=== PATIENT | female | born 1965 | race African-American/Black ===

== ENCOUNTER 2017-04-29 01:27 | Inpatient (IN) | payer OTHER ==
[~2017-04-29] VITALS: Ht 165.1 cm; Wt 155.7 kg
[~2017-04-29 01:27] MED LIST: ASPI-1159 PO; ATOR10TA69 PO; CARV3.1242 PO; CLOP75TA33 PO; GLIP10TA10 PO; LIP40 PO; LISI10TA5 PO; METF500T4 PO
[2017-04-29] MEDS ORDERED: CLON0.1T PO (01:56)
[2017-04-29] MEDS ORDERED: LATA2.5D2 OP (01:56)
[2017-04-29] MEDS ORDERED: FERR325T6 PO (01:56)
[2017-04-29] MEDS ORDERED: FURO40TA5 PO (01:56)
[2017-04-29] MEDS ORDERED: INSNOV SUBCUT (01:56)
[2017-04-29] MEDS ORDERED: LEVO75TA7 PO (01:56)
[2017-04-29] MEDS ORDERED: ERGO2000 PO (01:56)
[2017-04-29] MEDS ORDERED: FOLI-43 PO (01:56)
[2017-04-29] MEDS ORDERED: INSHUMSS SUBCUT (01:56)
[2017-04-29] MEDS ORDERED: SODIUM CHLORIDE 0.9% 1,000 ML IV ONE (06:33)
[2017-04-29] MEDS ORDERED: ONDANSETRON HCL 4MG/2ML VIAL IV STA ×2 (06:33→08:57)
[2017-04-29 07:04] LABS: BASOPHILS % 0.9 % (0.0-2.0); EOSINOPHILS % 5.2 % (0.0-5.0); HEMATOCRIT. 33.6 % (36.0-48.0); HEMOGLOBIN. 10.6 g/dL (12.0-16.0); LYMPHOCYTES % 19.8 % (20.0-50.0); MEAN CORPUSCULAR HEMOGLOBIN 25.9 pg (28.0-32.0); MEAN CORPUSCULAR VOLUME 81.9 fL (81.0-99.0); MEAN PLATELET VOLUME 7.6 fl (7.4-10.4); MONOCYTES % 8.1 % (2.0-8.0); PLATELET 363 x1000/uL (130-400); RED CELL DISTRIBUTION WIDTH 13.5 % (11.6-14.6)
[2017-04-29 07:07] LABS: CHLORIDE 113 mEq/L (98-107)
[2017-04-29 07:08] LABS: PROTHROMBIN TIME 10.5 sec (9.4-11.6)
[2017-04-29 07:15] LABS: CLARITY URINE CLEAR (CLEAR); COLOR URINE YELLOW (YELLOW); KETONES URINE TRACE (NEGATIVE); LEUKOCYTE ESTERASE URINE NEGATIVE (NEGATIVE); NITRITE URINE NEGATIVE (NEGATIVE); OCCULT BLOOD URINE 2+ (NEGATIVE); PH URINE 6.5 (4.5-8.0); PROTEIN URINE 4+ (NEGATIVE); SPECIFIC GRAVITY URINE 1.024 (1.005-1.030); UROBILINOGEN URINE 0.2 E.U./dL (0.2-1.0)
[2017-04-29 07:19] LABS: CARBON DIOXIDE 23 mEq/L (21-32)
[2017-04-29] MEDS ORDERED: SODIUM BICARBONATE 8.4% 1 MEQ/ML 50ML SYR IV ONE (08:15)
[2017-04-29] MEDS ORDERED: SODIUM POLYSTYRENE SULFONATE 15 G/60 ML BOT PO ONE (08:15)
[2017-04-29] MEDS ORDERED: DEXTROSE 50% WATER 50ML SYRINGE IV ONE (08:15)
[2017-04-29] MEDS ORDERED: INSULIN REGULAR (HUMULIN R) 300UNITS/3ML IV ONE (08:15)
[2017-04-29] MEDS ORDERED: ONDANSETRON HCL 4MG/2ML VIAL IV PRN (09:15)
[2017-04-29] MEDS ORDERED: MORPHINE SULFATE 2 MG/ML CPJ (NOT FOR IM USE) IV PRN (09:15)
[2017-04-29] MEDS ORDERED: IPRATROPIUM/ALBUTEROL 0.5-3(2.5)MG/3ML NEB INH PRN (09:15)
[2017-04-29] MEDS ORDERED: MAGNESIUM/ALUMINUM HYDROXIDE/SIMETHICONE 30ML UDC PO PRN (09:15)
[2017-04-29] MEDS ORDERED: DOCUSATE SODIUM 100MG CAPSULE PO PRN (09:15)
[2017-04-29] MEDS ORDERED: HYDROCODONE/ACETAMINOPHEN 10/325MG TABLET PO PRN (09:15)
[2017-04-29] MEDS ORDERED: NA PHOS,M-B/NA PHOS,DI-BA ENEMA 118ML PR PRN (09:15)
[2017-04-29] MEDS ORDERED: LORAZEPAM 2MG/ML CPJ IV PRN (09:15)
[2017-04-29] MEDS ORDERED: GUAIFENESIN 200MG/10ML SUGAR FREE UDC PO PRN (09:15)
[2017-04-29] MEDS ORDERED: ACETAMINOPHEN 325MG TABLET PO PRN (09:15)
[2017-04-29] MEDS: CLONIDINE 0.1MG TABLET PO PRN (10:55)
[2017-04-29] MEDS ORDERED: CLON-457 PO (12:35)
[2017-04-29] MEDS ORDERED: CYAN100069 PO (12:35)
[2017-04-29] MEDS ORDERED: CHOL100046 PO (12:35)
[2017-04-29] MEDS ORDERED: LISI40TA4 PO (12:35)
[2017-04-29] MEDS ORDERED: INSU100I22 SQ (12:37)
[2017-04-29] MEDS ORDERED: MEDICATION NOT ON FORMULARY EA (Cholecalciferol (Vitamin D) 50,000 UNIT) PO SCH (12:45)
[2017-04-29] MEDS ORDERED: MEDICATION NOT ON FORMULARY EA (Clonidine HCl (Clonidine HCl ER) 0.1 MG) PO SCH (12:45)
[2017-04-29] MEDS: CARVEDILOL 3.125 MG TABLET PO SCH ×2 (12:45→21:35)
[2017-04-29 13:07] VITALS: BP 117/75
[2017-04-29] MEDS: ENOXAPARIN 40MG/0.4ML SYR SUBCUT SCH ×2 (13:14→21:35)
[2017-04-29] MEDS ORDERED: DEXTROSE 50% WATER 50ML SYRINGE IV PRN (15:45)
[2017-04-29 16:00] VITALS: BP 184/75
[2017-04-29] MEDS: BLOOD SUGAR DIAGNOSTIC STRIP TEST SCH ×2 (16:54→21:20)
[2017-04-29] MEDS: CLONIDINE 0.1MG TABLET PO SCH (16:54)
[2017-04-29] MEDS ORDERED: LISINOPRIL 40MG TABLET PO SCH (17:00)
[2017-04-29] MEDS: INSULIN LISPRO 100 UNITS/ML SUBCUT SCH ×2 (17:59→21:37)
[2017-04-29 20:00] VITALS: BP 131/61
[2017-04-29] MEDS ORDERED: INSULIN DEGLUDEC 34 UNIT SQ SCH (21:00)
[2017-04-29] MEDS: ATORVASTATIN CALCIUM 40MG TABLET PO SCH (21:34)
[2017-04-29] MEDS: LATANOPROST 0.005% OPHTH DROPS 2.5ML BOTHEYE SCH (21:36)
[2017-04-29] MEDS: PANTOPRAZOLE SODIUM 40 MG/VIAL IV SCH (21:37)
[2017-04-29] MEDS: INSULIN DETEMIR UD 100 UNITS/ML SYR SUBCUT SCH (23:21)
[2017-04-29] MEDS: METOCLOPRAMIDE HCL 10MG/2ML VIAL IV SCH (23:23)
[2017-04-30] VITALS (7 sets, daily range): BP systolic 130–175; BP diastolic 58–71
[2017-04-30] MEDS: CLONIDINE 0.1MG TABLET PO PRN (04:26)
[2017-04-30] MEDS: METOCLOPRAMIDE HCL 10MG/2ML VIAL IV SCH ×3 (05:31→17:48)
[2017-04-30] MEDS: LEVOTHYROXINE SODIUM 75MCG TABLET PO SCH (06:03)
[2017-04-30] MEDS: BLOOD SUGAR DIAGNOSTIC STRIP TEST SCH ×4 (06:06→20:55)
[2017-04-30] MEDS: INSULIN LISPRO 100 UNITS/ML SUBCUT SCH ×4 (06:06→20:56)
[2017-04-30 06:30] LABS: BASOPHILS % 0.7 % (0.0-2.0); EOSINOPHILS % 7.4 % (0.0-5.0); HEMATOCRIT. 30.3 % (36.0-48.0); HEMOGLOBIN. 9.8 g/dL (12.0-16.0); LYMPHOCYTES % 37.3 % (20.0-50.0); MEAN CORPUSCULAR HEMOGLOBIN 26.8 pg (28.0-32.0); MEAN CORPUSCULAR VOLUME 82.4 fL (81.0-99.0); MEAN PLATELET VOLUME 7.9 fl (7.4-10.4); NEUTROPHILS % 41.6 % (40.0-76.0); PLATELET 311 x1000/uL (130-400); RED BLOOD CELL COUNT 3.68 mill/uL (4.2-5.4); RED CELL DISTRIBUTION WIDTH 13.7 % (11.6-14.6)
[2017-04-30 06:37] LABS: CHLORIDE 113 mEq/L (98-107)
[2017-04-30 06:52] LABS: CARBON DIOXIDE 24 mEq/L (21-32); HDL CHOLESTEROL 49 mg/dL (40-59); LDL CHOLESTEROL 186 mg/dL (5-100)
[2017-04-30] MEDS ORDERED: FUROSEMIDE 40MG TABLET PO SCH ×2 (09:00)
[2017-04-30] MEDS ORDERED: CYANOCOBALAMIN 1000 MCG PO SCH (09:00)
[2017-04-30] MEDS: CLOPIDOGREL 75MG TABLET PO SCH (09:31)
[2017-04-30] MEDS: ASPIRIN 81MG EC TABLET PO SCH (09:35)
[2017-04-30] MEDS: FOLIC ACID 1MG TABLET PO SCH (09:36)
[2017-04-30] MEDS: CYANOCOBALAMIN 1000MCG TABLET PO SCH (09:36)
[2017-04-30] MEDS: PANTOPRAZOLE SODIUM 40 MG/VIAL IV SCH (09:37)
[2017-04-30] MEDS ORDERED: SODIUM POLYSTYRENE SULFONATE 15 G/60 ML BOT PO NR (09:45)
[2017-04-30] MEDS: ENOXAPARIN 40MG/0.4ML SYR SUBCUT SCH ×2 (09:49→20:50)
[2017-04-30] MEDS: CLONIDINE 0.1MG TABLET PO SCH ×2 (09:57→17:46)
[2017-04-30] MEDS: CARVEDILOL 3.125 MG TABLET PO SCH ×2 (09:58→20:49)
[2017-04-30] MEDS: FUROSEMIDE 40MG TABLET PO SCH ×2 (12:29→17:46)
[2017-04-30] MEDS: LATANOPROST 0.005% OPHTH DROPS 2.5ML BOTHEYE SCH (20:48)
[2017-04-30] MEDS: ATORVASTATIN CALCIUM 40MG TABLET PO SCH (20:48)
[2017-04-30] MEDS: INSULIN DETEMIR UD 100 UNITS/ML SYR SUBCUT SCH (21:16)
[2017-05-01 01:00] VITALS: BP 210/84
[2017-05-01] MEDS: METOCLOPRAMIDE HCL 10MG/2ML VIAL IV SCH ×2 (01:16→06:11)
[2017-05-01] MEDS: CLONIDINE 0.1MG TABLET PO PRN (01:22)
[2017-05-01 05:00] VITALS: BP 153/64
[2017-05-01] MEDS: LEVOTHYROXINE SODIUM 75MCG TABLET PO SCH (06:10)
[2017-05-01] MEDS: BLOOD SUGAR DIAGNOSTIC STRIP TEST SCH (06:38)
[2017-05-01] MEDS: INSULIN LISPRO 100 UNITS/ML SUBCUT SCH (06:38)
[2017-05-01 06:58] LABS: BASOPHILS % 0.8 % (0.0-2.0); EOSINOPHILS % 7.7 % (0.0-5.0); HEMATOCRIT. 28.7 % (36.0-48.0); HEMOGLOBIN. 9.5 g/dL (12.0-16.0); LYMPHOCYTES % 38.5 % (20.0-50.0); MEAN CORPUSCULAR HEMOGLOBIN 27.1 pg (28.0-32.0); MEAN CORPUSCULAR VOLUME 81.7 fL (81.0-99.0); MEAN PLATELET VOLUME 7.7 fl (7.4-10.4); MONOCYTES % 11.7 % (2.0-8.0); NEUTROPHILS % 41.3 % (40.0-76.0); PLATELET 283 x1000/uL (130-400); RED BLOOD CELL COUNT 3.52 mill/uL (4.2-5.4); RED CELL DISTRIBUTION WIDTH 13.6 % (11.6-14.6)
[2017-05-01 07:39] LABS: PHOSPHORUS 5.2 mg/dL (2.5-4.9)
[2017-05-01 07:57] VITALS: BP 165/69
[2017-05-01] MEDS: CLOPIDOGREL 75MG TABLET PO SCH (08:12)
[2017-05-01] MEDS: FUROSEMIDE 40MG TABLET PO SCH (08:12)
[2017-05-01] MEDS: FOLIC ACID 1MG TABLET PO SCH (08:12)
[2017-05-01] MEDS: ASPIRIN 81MG EC TABLET PO SCH (08:12)
[2017-05-01] MEDS: CYANOCOBALAMIN 1000MCG TABLET PO SCH (08:12)
[2017-05-01] MEDS: CLONIDINE 0.1MG TABLET PO SCH (08:13)
[2017-05-01] MEDS: PANTOPRAZOLE SODIUM 40 MG/VIAL IV SCH (08:15)
[2017-05-01 09:00] VITALS: BP 106/60
[2017-05-01] MEDS ORDERED: ERGOCALCIFEROL 50000UNITS CAPSULE PO SCH (09:00)
[2017-05-01] MEDS: CARVEDILOL 3.125 MG TABLET PO SCH (09:00)
[2017-05-01] MEDS: ENOXAPARIN 40MG/0.4ML SYR SUBCUT SCH (09:37)
[2017-05-01 10:34] VITALS: BP 106/60
[2017-05-01] MEDS ORDERED: INSULIN DETEMIR UD 100 UNITS/ML SYR SUBCUT SCH (22:00)
== END 2017-05-01 12:05 | disposition home or self-care (01) | DRG 291 ==
LOC: ER 01:27 → 5WST 09:12 → ENRESERV 09:54
PROVIDERS: ADMIT Internal Medicine; ATTEND Internal Medicine
DX: I13.0 Hypertensive heart and chronic kidney disease with heart failure and stage 1 through stage 4 chronic kidney disease, or unspecified chronic kidney disease (principal); N17.0 Acute kidney failure with tubular necrosis; E43 Unspecified severe protein-calorie malnutrition; Z68.43 Body mass index [BMI] 50.0-59.9, adult; N04.9 Nephrotic syndrome with unspecified morphologic changes; E11.22 Type 2 diabetes mellitus with diabetic chronic kidney disease; I42.9 Cardiomyopathy, unspecified; E87.5 Hyperkalemia; D64.9 Anemia, unspecified; I50.9 Heart failure, unspecified; E03.9 Hypothyroidism, unspecified; E78.5 Hyperlipidemia, unspecified; E05.90 Thyrotoxicosis, unspecified without thyrotoxic crisis or storm; E66.9 Obesity, unspecified; H40.9 Unspecified glaucoma; I25.10 Atherosclerotic heart disease of native coronary artery without angina pectoris; I25.2 Old myocardial infarction; Z79.4 Long term (current) use of insulin; Z79.82 Long term (current) use of aspirin; Z79.899 Other long term (current) drug therapy; Z83.3 Family history of diabetes mellitus; Z95.5 Presence of coronary angioplasty implant and graft; Z86.73 Personal history of transient ischemic attack (TIA), and cerebral infarction without residual deficits; Z88.8 Allergy status to other drugs, medicaments and biological substances; N18.3 Chronic kidney disease, stage 3 (moderate)
CPT/HCPCS: 36415; 74000; 80048; 80053; 80061; 81001; 82570; 82962; 83690; 83735; 84100; 84156; 84484; 85025; 85610; 87015; 87045; 87427; 87449; 87493; 93005; 96361; 96374; 96375; 99285; C9113; J1650; J1815; J2405; J2765; J3490; J7030

== ENCOUNTER 2018-04-06 04:48 | Emergency (ER) | payer MEDICAID, MEDICARE ==
[~2018-04-06] VITALS: Ht 165.1 cm; Wt 155.0 kg
[~2018-04-06 04:48] MED LIST changes: -ATOR10TA69 PO; +CHOL100046 PO; +ERGO2000 PO; +FERR325T6 PO; +FOLI-43 PO; -GLIP10TA10 PO; +INSHUMSS SUBCUT; +INSU100I22 SQ; +LATA2.5D2 OP; +LEVO75TA7 PO; -LISI10TA5 PO; -METF500T4 PO
[2018-04-06] MEDS ORDERED: SODIUM CHLORIDE 0.9% 1,000 ML IV ONE (06:13)
[2018-04-06] MEDS ORDERED: ONDANSETRON HCL 4MG/2ML INJ IV STA (06:13)
[2018-04-06 06:50] LABS: BASOPHILS % 0.7 % (0.0-2.0); EOSINOPHILS % 3.9 % (0.0-5.0); HEMATOCRIT. 25.1 % (36.0-48.0); LYMPHOCYTES % 12.2 % (20.0-50.0); MEAN CORPUSCULAR HEMOGLOBIN 26.8 pg (28.0-32.0); MEAN CORPUSCULAR VOLUME 83.8 fL (81.0-99.0); MEAN PLATELET VOLUME 7.2 fl (7.4-10.4); MONOCYTES % 7.6 % (2.0-8.0); NEUTROPHILS % 75.6 % (40.0-76.0); PLATELET 307 x1000/uL (130-400); RED BLOOD CELL COUNT 2.99 mill/uL (4.2-5.4); RED CELL DISTRIBUTION WIDTH 13.8 % (11.6-14.6)
[2018-04-06 07:00] LABS: CHLORIDE 114 mEq/L (98-107)
[2018-04-06] MEDS ORDERED: CALCIUM GLUCONATE 1,000 MG in DEXT 5% WATER 100 ML IV ONE (07:45)
[2018-04-06] MEDS ORDERED: INSULIN REGULAR (HUMULIN R) 300UNITS/3ML IV ONE (07:45)
[2018-04-06] MEDS ORDERED: DEXTROSE 50% WATER 50ML SYRINGE IV ONE (07:45)
[2018-04-06 07:54] LABS: CLARITY URINE CLEAR (CLEAR); COLOR URINE YELLOW (YELLOW); KETONES URINE NEGATIVE (NEGATIVE); LEUKOCYTE ESTERASE URINE NEGATIVE (NEGATIVE); NITRITE URINE NEGATIVE (NEGATIVE); OCCULT BLOOD URINE 1+ (NEGATIVE); PH URINE 6.5 (4.5-8.0); PROTEIN URINE 4+ (NEGATIVE); SPECIFIC GRAVITY URINE 1.013 (1.005-1.030); UROBILINOGEN URINE 0.2 E.U./dL (0.2-1.0)
[2018-04-06] MEDS ORDERED: CALCIUM GLUCONATE 1,000 MG in DEXT 5% WATER 100 ML IV SCH (09:00)
[2018-04-06] MEDS ORDERED: SODIUM POLYSTYRENE SULFONATE 15 G/60 ML BOT PO ONE ×2 (13:30→15:15)
[2018-04-06] MEDS ORDERED: HYDRALAZINE 20MG/ML VIAL IV PRN (15:15)
[2018-04-06] MEDS ORDERED: ONDANSETRON HCL 4MG/2ML INJ IV PRN (15:15)
[2018-04-06 18:32] VITALS: BP 137/67
== END 2018-04-06 18:57 | disposition short-term general hospital (02) ==
LOC: ER 05:57 → SUPCPDRO 14:18 → CANBEDREQ 14:36 → ER 18:57
DX: I13.0 Hypertensive heart and chronic kidney disease with heart failure and stage 1 through stage 4 chronic kidney disease, or unspecified chronic kidney disease (principal); I50.33 Acute on chronic diastolic (congestive) heart failure; N18.9 Chronic kidney disease, unspecified; E11.22 Type 2 diabetes mellitus with diabetic chronic kidney disease; I25.10 Atherosclerotic heart disease of native coronary artery without angina pectoris; E78.5 Hyperlipidemia, unspecified; E03.9 Hypothyroidism, unspecified; R80.9 Proteinuria, unspecified; E87.5 Hyperkalemia; I43 Cardiomyopathy in diseases classified elsewhere; I50.9 Heart failure, unspecified; D64.9 Anemia, unspecified; E88.09 Other disorders of plasma-protein metabolism, not elsewhere classified; Z88.1 Allergy status to other antibiotic agents; Z79.4 Long term (current) use of insulin; Z79.899 Other long term (current) drug therapy
CPT/HCPCS: 36415; 71045; 80048; 80053; 81003; 82962; 83690; 85025; 93005; 96361; 96365; 96375; 99285; J0360; J0610; J1815; J2405; J7030; 99284; J7060

== ENCOUNTER 2018-05-10 16:46 | Emergency (ER) | payer MEDICARE ==
[~2018-05-10] VITALS: Ht 165.1 cm; Wt 156.8 kg
[2018-05-10 16:53] VITALS: BP 171/65
== END 2018-05-10 17:30 | disposition left against medical advice (07) ==
LOC: ER 17:29
DX: R53.1 Weakness (principal); Z53.21 Procedure and treatment not carried out due to patient leaving prior to being seen by health care provider

== ENCOUNTER 2018-05-16 23:15 | Emergency (ER) | payer MEDICARE | END 2018-05-17 01:51 | disposition left against medical advice (07) | LOC: ER 23:15 | DX: R68.89 Other general symptoms and signs (principal); Z53.21 Procedure and treatment not carried out due to patient leaving prior to being seen by health care provider ==

== ENCOUNTER 2018-06-21 23:16 | Inpatient (IN) | payer MEDICARE ==
[~2018-06-21] VITALS: Ht 165.1 cm; Wt 144.2 kg
[2018-06-22 01:26] LABS: BASOPHILS % 0.8 % (0.0-2.0); EOSINOPHILS % 3.5 % (0.0-5.0); HEMATOCRIT. 28.7 % (36.0-48.0); HEMOGLOBIN. 9.3 g/dL (12.0-16.0); LYMPHOCYTES % 12.4 % (20.0-50.0); MEAN CORPUSCULAR HEMOGLOBIN 27.8 pg (28.0-32.0); MEAN CORPUSCULAR VOLUME 85.4 fL (81.0-99.0); MEAN PLATELET VOLUME 7.9 fl (7.4-10.4); MONOCYTES % 7.6 % (2.0-8.0); NEUTROPHILS % 75.7 % (40.0-76.0); PLATELET 277 x1000/uL (130-400); RED BLOOD CELL COUNT 3.36 mill/uL (4.2-5.4); RED CELL DISTRIBUTION WIDTH 13.8 % (11.6-14.6)
[2018-06-22 01:29] LABS: CHLORIDE 103 mEq/L (98-107)
[2018-06-22] MEDS ORDERED: HYDRALAZINE 20MG/ML VIAL IV NR (10:30)
[2018-06-22] MEDS ORDERED: MAGNESIUM/ALUMINUM HYDROXIDE/SIMETHICONE 30ML UDC PO PRN (11:15)
[2018-06-22] MEDS ORDERED: ACETAMINOPHEN 650MG SUPP PR PRN (11:15)
[2018-06-22] MEDS ORDERED: NA PHOS,M-B/NA PHOS,DI-BA ENEMA 118ML PR PRN (11:15)
[2018-06-22] MEDS ORDERED: DOCUSATE SODIUM 100MG CAPSULE PO PRN (11:15)
[2018-06-22] MEDS ORDERED: LORAZEPAM 0.5MG TABLET PO PRN (11:15)
[2018-06-22] MEDS ORDERED: DIPHENHYDRAMINE 50MG/ML VIAL IV PRN (11:15)
[2018-06-22] MEDS ORDERED: IPRATROPIUM/ALBUTEROL 0.5-3(2.5)MG/3ML NEB INH PRN (11:15)
[2018-06-22] MEDS ORDERED: ONDANSETRON HCL 4MG/2ML INJ IV PRN (11:15)
[2018-06-22] MEDS ORDERED: CLONIDINE 0.1MG TABLET PO PRN (11:15)
[2018-06-22] MEDS ORDERED: HYDROCODONE/ACETAMINOPHEN 5/325MG TABLET PO PRN (11:15)
[2018-06-22] MEDS ORDERED: GUAIFENESIN 200MG/10ML SUGAR FREE UDC PO PRN (11:15)
[2018-06-22] MEDS ORDERED: ACETAMINOPHEN 325MG TABLET PO PRN (11:15)
[2018-06-22] MEDS: CARVEDILOL 3.125 MG TABLET PO SCH ×2 (12:15→21:00)
[2018-06-22] MEDS ORDERED: REGADENOSON 0.4 MG/5 ML IV ONE (12:15)
[2018-06-22] MEDS ORDERED: DEXTROSE 50% WATER 50ML SYRINGE IV PRN (14:15)
[2018-06-22] MEDS ORDERED: CLONIDINE 0.2MG TABLET PO PRN (14:30)
[2018-06-22 14:50] LABS: CREATINE KINASE MB FRACTION 1.2 ng/mL (0.5-3.6)
[2018-06-22 23:00] VITALS: BP 155/80
[2018-06-23] VITALS: BP 155/80
[2018-06-23] MEDS: LOSARTAN POTASSIUM 25 MG TABLET PO SCH ×3 (00:32→21:00)
[2018-06-23 04:00] VITALS: BP 153/67
[2018-06-23] MEDS ORDERED: REGADENOSON 0.4 MG/5 ML IV NR (06:00)
[2018-06-23] MEDS: INSULIN LISPRO 100 UNITS/ML SUBCUT SCH ×4 (06:12→21:00)
[2018-06-23] MEDS: BLOOD SUGAR DIAGNOSTIC STRIP TEST SCH ×4 (06:12→21:00)
[2018-06-23] MEDS: LEVOTHYROXINE SODIUM 75MCG TABLET PO SCH (06:24)
[2018-06-23 06:58] LABS: BASOPHILS % 0.7 % (0.0-2.0); EOSINOPHILS % 4.6 % (0.0-5.0); HEMATOCRIT. 26.5 % (36.0-48.0); HEMOGLOBIN. 8.3 g/dL (12.0-16.0); MEAN CORPUSCULAR HEMOGLOBIN 27.1 pg (28.0-32.0); MEAN CORPUSCULAR VOLUME 86.2 fL (81.0-99.0); MEAN PLATELET VOLUME 7.4 fl (7.4-10.4); NEUTROPHILS % 59.7 % (40.0-76.0); PLATELET 303 x1000/uL (130-400); RED BLOOD CELL COUNT 3.07 mill/uL (4.2-5.4); RED CELL DISTRIBUTION WIDTH 13.5 % (11.6-14.6)
[2018-06-23] MEDS: CARVEDILOL 3.125 MG TABLET PO SCH ×2 (09:00→21:00)
[2018-06-23] MEDS: AMLODIPINE 5MG TABLET PO SCH ×3 (09:00→21:00)
[2018-06-23] MEDS ORDERED: REGADENOSON 0.4 MG/5 ML IV ONE (10:20)
[2018-06-23 11:04] LABS: CHLORIDE 105 mEq/L (98-107)
[2018-06-23 11:21] LABS: CREATINE KINASE 100 IU/L (26-192); HDL CHOLESTEROL 40 mg/dL (40-59)
[2018-06-23 11:32] LABS: LDL CHOLESTEROL 78 mg/dL (5-100)
[2018-06-23 12:00] VITALS: BP 110/54
[2018-06-23] MEDS: ASPIRIN 81MG TABLET PO SCH (12:14)
[2018-06-23] MEDS: CLOPIDOGREL 75MG TABLET PO SCH (12:14)
[2018-06-23 16:00] VITALS: BP 128/54
[2018-06-23 20:00] VITALS: BP 123/52
[2018-06-23] MEDS ORDERED: ATORVASTATIN CALCIUM 40MG TABLET PO SCH (21:00)
[2018-06-24] VITALS: BP 125/51
[2018-06-24 04:00] VITALS: BP 162/72
[2018-06-24] MEDS: BLOOD SUGAR DIAGNOSTIC STRIP TEST SCH ×2 (06:48→12:10)
[2018-06-24] MEDS: INSULIN LISPRO 100 UNITS/ML SUBCUT SCH ×2 (06:48→14:34)
[2018-06-24] MEDS: LEVOTHYROXINE SODIUM 75MCG TABLET PO SCH (06:49)
[2018-06-24 08:00] VITALS: BP 137/63
[2018-06-24] MEDS: ASPIRIN 81MG TABLET PO SCH (08:46)
[2018-06-24] MEDS: CLOPIDOGREL 75MG TABLET PO SCH (08:46)
[2018-06-24] MEDS: LOSARTAN POTASSIUM 25 MG TABLET PO SCH (08:48)
[2018-06-24] MEDS: AMLODIPINE 5MG TABLET PO SCH (08:48)
[2018-06-24] MEDS: CARVEDILOL 3.125 MG TABLET PO SCH (08:48)
[2018-06-24 10:27] VITALS: BP 137/63
== END 2018-06-24 15:10 | disposition home or self-care (01) | DRG 194 ==
LOC: ER 23:16 → 8WST 06-22 03:23 → EDBEDREQ 06-22 03:25 → EDBEDREQTM 06-22 03:25 → ENRESERV 06-22 20:45
PROVIDERS: ADMIT Internal Medicine; ATTEND Internal Medicine
PROC: 5A1D70Z Performance of Urinary Filtration, Intermittent, Less than 6 Hours Per Day (ICD-10-PCS; 2018-06-22)
PROC: 5A09357 Assistance with Respiratory Ventilation, Less than 24 Consecutive Hours, Continuous Positive Airway Pressure (ICD-10-PCS; principal; 2018-06-23)
PROC: 5A1D70Z Performance of Urinary Filtration, Intermittent, Less than 6 Hours Per Day (ICD-10-PCS; 2018-06-23)
DX: I13.2 Hypertensive heart and chronic kidney disease with heart failure and with stage 5 chronic kidney disease, or end stage renal disease (principal); E11.22 Type 2 diabetes mellitus with diabetic chronic kidney disease; E46 Unspecified protein-calorie malnutrition; N18.6 End stage renal disease; E66.2 Morbid (severe) obesity with alveolar hypoventilation; I50.33 Acute on chronic diastolic (congestive) heart failure; R07.89 Other chest pain; Z99.2 Dependence on renal dialysis; Z68.43 Body mass index [BMI] 50.0-59.9, adult; E03.9 Hypothyroidism, unspecified; D50.9 Iron deficiency anemia, unspecified; I25.10 Atherosclerotic heart disease of native coronary artery without angina pectoris; E78.00 Pure hypercholesterolemia, unspecified; Z79.02 Long term (current) use of antithrombotics/antiplatelets; Z79.82 Long term (current) use of aspirin; Z79.890 Hormone replacement therapy; Z82.49 Family history of ischemic heart disease and other diseases of the circulatory system; Z87.891 Personal history of nicotine dependence; Z83.3 Family history of diabetes mellitus; Z95.5 Presence of coronary angioplasty implant and graft; Z88.1 Allergy status to other antibiotic agents; Z80.8 Family history of malignant neoplasm of other organs or systems; Z79.84 Long term (current) use of oral hypoglycemic drugs; M94.0 Chondrocostal junction syndrome [Tietze]
CPT/HCPCS: 36415; 71045; 78452; 78582; 80061; 82550; 82553; 82962; 83036; 83735; 83880; 84443; 84484; 85379; 93005; 93017; 93306; 93970; 94660; 97116; 97161; 99285; A9500; A9558; C1893; J0360; J1815; J2785

== ENCOUNTER 2018-10-31 21:58 | Inpatient (IN) | payer MEDICARE, MEDICAID ==
[~2018-10-31] VITALS: Ht 165.1 cm; Wt 138.4 kg
[~2018-10-31 21:58] MED LIST changes: -ASPI-1159 PO; +ASPI-1393 PO
[2018-10-31] MEDS ORDERED: SODIUM CHLORIDE 0.9% 1,000 ML IV ONE (23:29)
[2018-10-31] MEDS ORDERED: ONDANSETRON HCL 4MG/2ML INJ IV STA (23:29)
[2018-10-31] MEDS ORDERED: KETOROLAC 30MG/ML VIAL IV STA (23:29)
[2018-10-31] MEDS ORDERED: CLONIDINE 0.2MG TABLET PO ONE (23:45)
[2018-10-31] MEDS ORDERED: LORAZEPAM 2MG/ML CPJ IV ONE (23:45)
[2018-11-01 00:41] LABS: CHLORIDE 108 mEq/L (98-107)
[2018-11-01 00:52] LABS: BASOPHILS % 0.8 % (0.0-2.0); EOSINOPHILS % 3.4 % (0.0-5.0); HEMATOCRIT. 38.6 % (36.0-48.0); HEMOGLOBIN. 12.4 g/dL (12.0-16.0); LYMPHOCYTES % 12.3 % (20.0-50.0); MEAN CORPUSCULAR HEMOGLOBIN 29.6 pg (28.0-32.0); MEAN PLATELET VOLUME 8.1 fl (7.4-10.4); MONOCYTES % 6.1 % (2.0-8.0); NEUTROPHILS % 77.4 % (40.0-76.0); PLATELET 246 x1000/uL (130-400); RED CELL DISTRIBUTION WIDTH 16.4 % (11.6-14.6)
[2018-11-01 01:01] LABS: CLARITY URINE CLEAR (CLEAR); COLOR URINE YELLOW (YELLOW); KETONES URINE TRACE (NEGATIVE); LEUKOCYTE ESTERASE URINE NEGATIVE (NEGATIVE); NITRITE URINE NEGATIVE (NEGATIVE); OCCULT BLOOD URINE 1+ (NEGATIVE); PH URINE 8.5 (4.5-8.0); PROTEIN URINE 4+ (NEGATIVE); SPECIFIC GRAVITY URINE 1.017 (1.005-1.030); UROBILINOGEN URINE 0.2 E.U./dL (0.2-1.0)
[2018-11-01] MEDS ORDERED: CALCIUM CHLORIDE 1GM/10ML SYR IV ONE (01:15)
[2018-11-01] MEDS ORDERED: INSULIN REGULAR (HUMULIN R) 300UNITS/3ML IV ONE (01:15)
[2018-11-01] MEDS ORDERED: DEXTROSE 50% WATER 50ML SYRINGE IV ONE ×2 (01:15→10:45)
[2018-11-01] MEDS ORDERED: SODIUM BICARBONATE 8.4% 1 MEQ/ML 50ML SYR IV ONE ×2 (01:15→10:45)
[2018-11-01] MEDS: SODIUM POLYSTYRENE SULFONATE 15 G/60 ML BOT PO SCH (08:00)
[2018-11-01 08:19] LABS: CHLORIDE 111 mEq/L (98-107)
[2018-11-01] MEDS ORDERED: ACETAMINOPHEN 325MG TABLET PO PRN (08:30)
[2018-11-01] MEDS ORDERED: ONDANSETRON HCL 4MG/2ML INJ IV PRN (08:30)
[2018-11-01] MEDS ORDERED: IPRATROPIUM/ALBUTEROL 0.5-3(2.5)MG/3ML NEB HHN PRN (08:30)
[2018-11-01] MEDS ORDERED: ALBUTEROL (0.083%) 2.5MG/3ML NEB HHN NR (10:45)
[2018-11-01] MEDS ORDERED: INSULIN REGULAR (HUMULIN R) 300UNITS/3ML IV NR (10:45)
[2018-11-01] MEDS ORDERED: SODIUM BICARBONATE 8.4% 1 MEQ/ML 50ML SYR IV NR (11:45)
[2018-11-01] MEDS ORDERED: DEXTROSE 50% WATER 50ML SYRINGE IV NR (11:45)
[2018-11-01 12:00] VITALS: BP 144/66
[2018-11-01] MEDS: AMLODIPINE 5MG TABLET PO SCH ×2 (13:00→22:00)
[2018-11-01 14:42] VITALS: BP 144/66
[2018-11-01 16:00] VITALS: BP 131/76
[2018-11-01 20:00] VITALS: BP 152/75
[2018-11-01] MEDS: HYDRALAZINE HCL 50MG TABLET PO SCH (21:14)
[2018-11-02] VITALS: BP 138/66
[2018-11-02 04:00] VITALS: BP 184/71
[2018-11-02 06:02] LABS: BASOPHILS % 0.7 % (0.0-2.0); EOSINOPHILS % 7.2 % (0.0-5.0); HEMATOCRIT. 37.7 % (36.0-48.0); HEMOGLOBIN. 11.8 g/dL (12.0-16.0); MEAN CORPUSCULAR HEMOGLOBIN 28.9 pg (28.0-32.0); MEAN CORPUSCULAR VOLUME 92.1 fL (81.0-99.0); MEAN PLATELET VOLUME 8.2 fl (7.4-10.4); MONOCYTES % 9.6 % (2.0-8.0); NEUTROPHILS % 62.5 % (40.0-76.0); PLATELET 230 x1000/uL (130-400); RED BLOOD CELL COUNT 4.09 mill/uL (4.2-5.4); RED CELL DISTRIBUTION WIDTH 16.7 % (11.6-14.6)
[2018-11-02] MEDS ORDERED: ACETAMINOPHEN 325MG TABLET PO PRN (07:30)
[2018-11-02 08:00] VITALS: BP 127/58
[2018-11-02] MEDS: AMLODIPINE 5MG TABLET PO SCH (08:41)
[2018-11-02] MEDS: HYDRALAZINE HCL 50MG TABLET PO SCH (08:42)
[2018-11-02] MEDS ORDERED: ASPIRIN 81MG TABLET PO SCH (09:00)
[2018-11-02 12:00] VITALS: BP 134/53
[2018-11-02 12:19] VITALS: BP 134/53
[2018-11-02] MEDS: SODIUM POLYSTYRENE SULFONATE 15 G/60 ML BOT PO SCH (13:20)
[2018-11-02 16:00] VITALS: BP 149/57
== END 2018-11-02 18:10 | disposition home or self-care (01) | DRG 291 ==
LOC: ER 21:58 → 8WST 11-01 06:04 → EDBEDREQSVC 11-01 06:06 → EDBEDREQTM 11-01 06:06 → EDBEDREQ 11-01 06:06 → ENRESERV 11-01 07:05
PROVIDERS: ADMIT Internal Medicine; ATTEND Internal Medicine
DX: I13.2 Hypertensive heart and chronic kidney disease with heart failure and with stage 5 chronic kidney disease, or end stage renal disease (principal); N18.6 End stage renal disease; E44.1 Mild protein-calorie malnutrition; Z68.43 Body mass index [BMI] 50.0-59.9, adult; I16.0 Hypertensive urgency; E87.5 Hyperkalemia; E11.22 Type 2 diabetes mellitus with diabetic chronic kidney disease; E87.8 Other disorders of electrolyte and fluid balance, not elsewhere classified; E66.01 Morbid (severe) obesity due to excess calories; D64.9 Anemia, unspecified; I25.10 Atherosclerotic heart disease of native coronary artery without angina pectoris; I50.9 Heart failure, unspecified; E03.9 Hypothyroidism, unspecified; Z86.73 Personal history of transient ischemic attack (TIA), and cerebral infarction without residual deficits; Z83.3 Family history of diabetes mellitus; Z99.2 Dependence on renal dialysis; Z88.1 Allergy status to other antibiotic agents; Z79.899 Other long term (current) drug therapy; Z79.82 Long term (current) use of aspirin
CPT/HCPCS: 36415; 71045; 74176; 80048; 82962; 83880; 84132; 84484; 93005; 93970; 94640; J1815; J1885; J2060; J2405; J3490; J7030; J7620

== ENCOUNTER 2018-12-03 04:05 | Inpatient (IN) | payer MEDICARE, MEDICAID ==
[~2018-12-03] VITALS: Ht 165.1 cm; Wt 144.0 kg
[2018-12-03 05:12] LABS: CHLORIDE 100 mEq/L (98-107)
[2018-12-03 05:18] LABS: HEMOGLOBIN. 12.2 g/dL (12.0-16.0); MEAN CORPUSCULAR HEMOGLOBIN 29.1 pg (28.0-32.0); MEAN CORPUSCULAR VOLUME 90.9 fL (81.0-99.0); MEAN PLATELET VOLUME 8.6 fl (7.4-10.4); PLATELET 309 x1000/uL (130-400); RED BLOOD CELL COUNT 4.19 mill/uL (4.2-5.4); RED CELL DISTRIBUTION WIDTH 14.9 % (11.6-14.6)
[2018-12-03 05:22] LABS: BETA HYDROXYBUTYRATE 0.1 mMol/L (0.0-0.3)
[2018-12-03] MEDS ORDERED: MORPHINE SULFATE 4 MG/ML CPJ (NOT FOR IM USE) IV STA (06:19)
[2018-12-03] MEDS ORDERED: ONDANSETRON HCL 4MG/2ML INJ IV STA (06:19)
[2018-12-03] MEDS ORDERED: INSULIN REGULAR (HUMULIN R) 300UNITS/3ML IV ONE (06:30)
[2018-12-03] MEDS ORDERED: HYDRALAZINE 20MG/ML VIAL IV ONE (06:30)
[2018-12-03 06:51] LABS: PLATELET ESTIMATE NORMAL
[2018-12-03] MEDS ORDERED: LORAZEPAM 2MG/ML CPJ IV PRN (08:00)
[2018-12-03] MEDS ORDERED: IPRATROPIUM/ALBUTEROL 0.5-3(2.5)MG/3ML NEB INH PRN (08:00)
[2018-12-03] MEDS ORDERED: ENOXAPARIN 30MG/0.3ML SYR SUBCUT SCH (10:30)
[2018-12-03] MEDS: CLONIDINE 0.1MG TABLET PO SCH ×3 (10:30→21:00)
[2018-12-03 10:40] VITALS: BP 168/68
[2018-12-03] MEDS: ASPIRIN 81MG EC TABLET PO SCH (10:41)
[2018-12-03] MEDS: FOLIC ACID 1MG TABLET PO SCH (10:41)
[2018-12-03] MEDS: METOPROLOL TARTRATE 50MG TABLET PO SCH ×2 (10:41→21:00)
[2018-12-03] MEDS: THIAMINE HCL 100MG TABLET PO SCH (10:41)
[2018-12-03 11:06] VITALS: BP 168/68
[2018-12-03] MEDS ORDERED: ACET5SOL2 PO (11:32)
[2018-12-03] MEDS ORDERED: CALC667C PO (11:32)
[2018-12-03] MEDS ORDERED: ISOS1TAB MT (11:32)
[2018-12-03] MEDS ORDERED: ATOR20TA65 PO (11:32)
[2018-12-03] MEDS ORDERED: SITA25TA3 PO (11:32)
[2018-12-03] MEDS ORDERED: ONDA4TAB11 PO (11:32)
[2018-12-03] MEDS ORDERED: CARV25TA47 PO (11:32)
[2018-12-03] MEDS ORDERED: LACT10SO6 PO (11:33)
[2018-12-03] MEDS ORDERED: INSU100I24 SQ (11:35)
[2018-12-03 12:00] VITALS: BP 123/61
[2018-12-03] MEDS ORDERED: LATA2.5D2 EACHEYE (15:04)
[2018-12-03] MEDS ORDERED: DEXTROSE 50% WATER 50ML SYRINGE IV PRN (15:30)
[2018-12-03 16:00] VITALS: BP 138/70
[2018-12-03 16:05] LABS: CREATINE KINASE 235 IU/L (26-192)
[2018-12-03 16:06] LABS: CREATINE KINASE MB FRACTION 3.7 ng/mL (0.5-3.6)
[2018-12-03] MEDS: BLOOD SUGAR DIAGNOSTIC STRIP TEST SCH ×2 (17:22→21:06)
[2018-12-03] MEDS: INSULIN LISPRO 100 UNITS/ML SUBCUT SCH ×2 (17:26→21:06)
[2018-12-03 20:19] VITALS: BP 136/61
[2018-12-03] MEDS ORDERED: TRAMADOL 50MG TABLET PO PRN (21:00)
[2018-12-04] VITALS: BP 161/65
[2018-12-04] MEDS: HYDROCODONE/ACETAMINOPHEN 5/325MG TABLET PO PRN ×2 (02:33→23:19)
[2018-12-04 04:00] VITALS: BP 161/60
[2018-12-04] MEDS: BLOOD SUGAR DIAGNOSTIC STRIP TEST SCH ×4 (06:20→21:20)
[2018-12-04] MEDS: INSULIN LISPRO 100 UNITS/ML SUBCUT SCH ×4 (07:50→21:00)
[2018-12-04 08:00] VITALS: BP 148/54
[2018-12-04] MEDS: ENOXAPARIN 40MG/0.4ML SYR SUBCUT SCH (09:00)
[2018-12-04] MEDS: METOPROLOL TARTRATE 50MG TABLET PO SCH ×2 (09:00→21:20)
[2018-12-04] MEDS: CLONIDINE 0.1MG TABLET PO SCH ×2 (09:00→21:20)
[2018-12-04] MEDS: THIAMINE HCL 100MG TABLET PO SCH (09:54)
[2018-12-04] MEDS: FOLIC ACID 1MG TABLET PO SCH (09:54)
[2018-12-04] MEDS: ASPIRIN 81MG EC TABLET PO SCH (09:54)
[2018-12-04 12:00] VITALS: BP 128/46
[2018-12-04 16:00] VITALS: BP 152/69
[2018-12-04 20:00] VITALS: BP 196/58
[2018-12-05] VITALS: BP 180/68
[2018-12-05 04:00] VITALS: BP 156/49
[2018-12-05] MEDS: BLOOD SUGAR DIAGNOSTIC STRIP TEST SCH ×2 (06:53→12:47)
[2018-12-05] MEDS: INSULIN LISPRO 100 UNITS/ML SUBCUT SCH ×2 (07:50→13:33)
[2018-12-05 08:00] VITALS: BP 188/69
[2018-12-05] MEDS: ENOXAPARIN 40MG/0.4ML SYR SUBCUT SCH (09:00)
[2018-12-05] MEDS: METOPROLOL TARTRATE 50MG TABLET PO SCH (09:00)
[2018-12-05] MEDS: FOLIC ACID 1MG TABLET PO SCH (09:49)
[2018-12-05] MEDS: HYDROCODONE/ACETAMINOPHEN 5/325MG TABLET PO PRN (09:50)
[2018-12-05] MEDS: CLONIDINE 0.1MG TABLET PO SCH (09:50)
[2018-12-05] MEDS: THIAMINE HCL 100MG TABLET PO SCH (09:50)
[2018-12-05] MEDS: ASPIRIN 81MG EC TABLET PO SCH (09:50)
[2018-12-05 12:19] VITALS: BP 138/59
[2018-12-05 14:42] VITALS: BP 138/59
[2018-12-05 16:00] VITALS: BP 126/54
== END 2018-12-05 16:00 | disposition home or self-care (01) | DRG 919 ==
LOC: ER 04:05 → 6WST 06:36 → EDBEDREQ 06:38 → EDBEDREQTM 06:38 → ENRESERV 07:57
PROVIDERS: ADMIT Internal Medicine Nephrology; ATTEND Internal Medicine Nephrology
PROC: 5A1D70Z Performance of Urinary Filtration, Intermittent, Less than 6 Hours Per Day (ICD-10-PCS; principal; 2018-12-03)
DX: L76.22 Postprocedural hemorrhage of skin and subcutaneous tissue following other procedure (principal); N18.6 End stage renal disease; Z68.43 Body mass index [BMI] 50.0-59.9, adult; I13.2 Hypertensive heart and chronic kidney disease with heart failure and with stage 5 chronic kidney disease, or end stage renal disease; I16.0 Hypertensive urgency; E11.22 Type 2 diabetes mellitus with diabetic chronic kidney disease; M79.601 Pain in right arm; E66.01 Morbid (severe) obesity due to excess calories; I50.9 Heart failure, unspecified; I25.10 Atherosclerotic heart disease of native coronary artery without angina pectoris; E11.65 Type 2 diabetes mellitus with hyperglycemia; Y84.1 Kidney dialysis as the cause of abnormal reaction of the patient, or of later complication, without mention of misadventure at the time of the procedure; Z99.2 Dependence on renal dialysis; Z83.3 Family history of diabetes mellitus; Z80.8 Family history of malignant neoplasm of other organs or systems; Z79.4 Long term (current) use of insulin; Z88.1 Allergy status to other antibiotic agents; Y92.89 Other specified places as the place of occurrence of the external cause
CPT/HCPCS: 36415; 71045; 82010; 82550; 82553; 82962; 84484; 93005; 93306; 96374; 96375; 99285; J0360; J1650; J1815; J2270; J2405

== ENCOUNTER 2018-12-07 19:50 | Emergency (ER) | payer MEDICARE, MEDICAID ==
[~2018-12-07] VITALS: Ht 165.1 cm; Wt 143.0 kg
[~2018-12-07 19:50] MED LIST changes: +ACET5SOL2 PO; +ATOR20TA65 PO; +CALC667C PO; +CARV25TA47 PO; -CARV3.1242 PO; -ERGO2000 PO; -FERR325T6 PO; -INSU100I22 SQ; +INSU100I24 SQ; +ISOS1TAB MT; +LACT10SO6 PO; +LATA2.5D2 EACHEYE; -LATA2.5D2 OP; -LIP40 PO; +ONDA4TAB11 PO; +SITA25TA3 PO
[2018-12-07] MEDS ORDERED: MAGNESIUM CITRATE 300ML SOLUTION PO ONE (22:30)
[2018-12-07] MEDS ORDERED: MINERAL OIL ENEMA 133ML PR ONE (22:30)
[2018-12-07 23:02] LABS: HEMATOCRIT. 36.4 % (36.0-48.0); HEMOGLOBIN. 11.7 g/dL (12.0-16.0); MEAN CORPUSCULAR HEMOGLOBIN 29.1 pg (28.0-32.0); MEAN CORPUSCULAR VOLUME 90.3 fL (81.0-99.0); PLATELET 210 x1000/uL (130-400); RED BLOOD CELL COUNT 4.03 mill/uL (4.2-5.4); RED CELL DISTRIBUTION WIDTH 14.9 % (11.6-14.6)
[2018-12-07 23:06] LABS: CHLORIDE 105 mEq/L (98-107)
[2018-12-07 23:15] LABS: BETA HYDROXYBUTYRATE 0.3 mMol/L (0.0-0.3)
[2018-12-07 23:21] LABS: PLATELET ESTIMATE NORMAL
[2018-12-08] MEDS ORDERED: ONDANSETRON 4MG ODT PO ONE (00:15)
[2018-12-08 01:50] VITALS: BP 168/70
== END 2018-12-08 02:30 | disposition home or self-care (01) ==
LOC: ER 20:04
DX: K59.00 Constipation, unspecified (principal); R10.9 Unspecified abdominal pain; I50.9 Heart failure, unspecified; I12.0 Hypertensive chronic kidney disease with stage 5 chronic kidney disease or end stage renal disease; E11.22 Type 2 diabetes mellitus with diabetic chronic kidney disease; N18.6 End stage renal disease; Z79.4 Long term (current) use of insulin; Z88.3 Allergy status to other anti-infective agents; Z99.2 Dependence on renal dialysis; Z79.82 Long term (current) use of aspirin; Z98.62 Peripheral vascular angioplasty status
CPT/HCPCS: 36415; 80053; 82010; 83690; 85025; 99283; Q0162

== ENCOUNTER 2018-12-20 10:44 | Inpatient (IN) | payer MEDICARE, MEDICAID ==
[~2018-12-20] VITALS: Ht 167.6 cm; Wt 140.4 kg
[~2018-12-20 10:44] MED LIST changes: -ACET5SOL2 PO; -ISOS1TAB MT; -SITA25TA3 PO
[2018-12-20 11:15] VITALS: BP 254/95
[2018-12-20 11:20] VITALS: BP 225/74
[2018-12-20] MEDS ORDERED: DEXTROSE 50% WATER 50ML SYRINGE IV PRN (11:45)
[2018-12-20 11:57] VITALS: BP 225/74
[2018-12-20] MEDS: BLOOD SUGAR DIAGNOSTIC STRIP TEST SCH ×3 (12:10→21:30)
[2018-12-20] MEDS ORDERED: ACETAMINOPHEN 325MG TABLET PO PRN (12:30)
[2018-12-20] MEDS: ACETAMINOPHEN 325MG TABLET PO PRN (12:31)
[2018-12-20] MEDS: INSULIN LISPRO 100 UNITS/ML SUBCUT SCH ×3 (12:40→21:40)
[2018-12-20] MEDS ORDERED: LABETALOL 5MG/ML SYR 20 MG/4 ML SYRINGE IV NR (13:00)
[2018-12-20] MEDS ORDERED: CLONIDINE 0.2MG TABLET PO NR (13:00)
[2018-12-20 14:00] VITALS: BP 155/59
[2018-12-20] MEDS: ENOXAPARIN 40MG/0.4ML SYR SUBCUT SCH (15:00)
[2018-12-20] MEDS: CEFEPIME 2,000 MG in DEXT 5% WATER 100 ML IV SCH (15:49)
[2018-12-20] MEDS: METOCLOPRAMIDE HCL 10MG/2ML VIAL IV SCH ×2 (15:49→17:23)
[2018-12-20 16:00] VITALS: BP 108/50
[2018-12-20 20:00] VITALS: BP 122/67
[2018-12-21] VITALS: BP 133/51
[2018-12-21] MEDS: METOCLOPRAMIDE HCL 10MG/2ML VIAL IV SCH ×5 (00:27→23:59)
[2018-12-21 01:42] LABS: HEMATOCRIT. 32.4 % (36.0-48.0); HEMOGLOBIN. 10.5 g/dL (12.0-16.0); MEAN CORPUSCULAR HEMOGLOBIN 28.8 pg (28.0-32.0); MEAN CORPUSCULAR VOLUME 89.2 fL (81.0-99.0); MEAN PLATELET VOLUME 7.5 fl (7.4-10.4); PLATELET 284 x1000/uL (130-400); RED BLOOD CELL COUNT 3.63 mill/uL (4.2-5.4); RED CELL DISTRIBUTION WIDTH 15.2 % (11.6-14.6)
[2018-12-21 02:03] LABS: PLATELET ESTIMATE NORMAL
[2018-12-21 04:00] VITALS: BP 119/73
[2018-12-21 06:56] LABS: BASOPHILS % 0.3 % (0.0-2.0); EOSINOPHILS % 1.6 % (0.0-5.0); HEMATOCRIT. 30.3 % (36.0-48.0); HEMOGLOBIN. 9.8 g/dL (12.0-16.0); LYMPHOCYTES % 9.4 % (20.0-50.0); MEAN CORPUSCULAR HEMOGLOBIN 28.8 pg (28.0-32.0); MEAN CORPUSCULAR VOLUME 89.4 fL (81.0-99.0); MEAN PLATELET VOLUME 7.6 fl (7.4-10.4); NEUTROPHILS % 81.7 % (40.0-76.0); PLATELET 283 x1000/uL (130-400); RED BLOOD CELL COUNT 3.39 mill/uL (4.2-5.4); RED CELL DISTRIBUTION WIDTH 15.1 % (11.6-14.6)
[2018-12-21 12:00] VITALS: BP 146/63
[2018-12-21] MEDS: BLOOD SUGAR DIAGNOSTIC STRIP TEST SCH ×3 (12:09→20:40)
[2018-12-21] MEDS: INSULIN LISPRO 100 UNITS/ML SUBCUT SCH ×3 (12:09→21:17)
[2018-12-21] MEDS: CEFEPIME 2,000 MG in DEXT 5% WATER 100 ML IV SCH (14:31)
[2018-12-21] MEDS: ENOXAPARIN 40MG/0.4ML SYR SUBCUT SCH (15:00)
[2018-12-21] MEDS ORDERED: VANCOMYCIN 1 G PREMIX 200 ML IV NR (15:00)
[2018-12-21 16:00] VITALS: BP 172/63
[2018-12-21 20:00] VITALS: BP 150/51
[2018-12-22] VITALS (7 sets, daily range): BP systolic 118–227; BP diastolic 44–80
[2018-12-22] MEDS: BLOOD SUGAR DIAGNOSTIC STRIP TEST SCH ×4 (06:08→21:00)
[2018-12-22] MEDS: INSULIN LISPRO 100 UNITS/ML SUBCUT SCH ×4 (06:09→22:37)
[2018-12-22] MEDS: METOCLOPRAMIDE HCL 10MG/2ML VIAL IV SCH ×3 (06:11→17:35)
[2018-12-22] MEDS ORDERED: HEPARIN SODIUM 1,000 UNIT/1ML VIAL IV NR (13:30)
[2018-12-22] MEDS: ENOXAPARIN 40MG/0.4ML SYR SUBCUT SCH (15:00)
[2018-12-22] MEDS ORDERED: VANCOMYCIN 500 MG PREMIX 100 ML IV SCH (16:00)
[2018-12-22] MEDS: CEFEPIME 2,000 MG in DEXT 5% WATER 100 ML IV SCH (16:04)
[2018-12-22] MEDS: ONDANSETRON HCL 4MG/2ML INJ IV PRN (16:37)
[2018-12-22] MEDS: ACETAMINOPHEN 325MG TABLET PO PRN (17:31)
[2018-12-22] MEDS: CLONIDINE 0.1MG TABLET PO PRN (17:31)
[2018-12-22] MEDS: AMLODIPINE 5MG TABLET PO SCH (21:00)
[2018-12-23] VITALS: BP 130/68
[2018-12-23] MEDS: METOCLOPRAMIDE HCL 10MG/2ML VIAL IV SCH ×4 (00:13→18:26)
[2018-12-23] MEDS: BLOOD SUGAR DIAGNOSTIC STRIP TEST SCH ×4 (07:10→21:03)
[2018-12-23] MEDS: INSULIN LISPRO 100 UNITS/ML SUBCUT SCH ×4 (07:40→21:00)
[2018-12-23] MEDS: AMLODIPINE 5MG TABLET PO SCH ×3 (09:00→21:00)
[2018-12-23] MEDS: ONDANSETRON HCL 4MG/2ML INJ IV PRN (09:22)
[2018-12-23] MEDS ORDERED: LIDOCAINE HCL 1% 20ML VIAL (Pyxis) INJ ONE (10:19)
[2018-12-23] MEDS ORDERED: SODIUM BICARBONATE 4% (2.4MEQ) 5ML VIAL IV ONE (10:19)
[2018-12-23 12:00] VITALS: BP 120/61
[2018-12-23 12:58] LABS: BASOPHILS % 0.4 % (0.0-2.0); EOSINOPHILS % 1.3 % (0.0-5.0); HEMATOCRIT. 32.4 % (36.0-48.0); HEMOGLOBIN. 10.3 g/dL (12.0-16.0); LYMPHOCYTES % 7.3 % (20.0-50.0); MEAN CORPUSCULAR HEMOGLOBIN 28.6 pg (28.0-32.0); MEAN CORPUSCULAR VOLUME 89.9 fL (81.0-99.0); MEAN PLATELET VOLUME 7.9 fl (7.4-10.4); MONOCYTES % 6.3 % (2.0-8.0); NEUTROPHILS % 84.7 % (40.0-76.0); PLATELET 271 x1000/uL (130-400)
[2018-12-23 13:11] LABS: PHOSPHORUS 3.6 mg/dL (2.5-4.9)
[2018-12-23] MEDS: ENOXAPARIN 40MG/0.4ML SYR SUBCUT SCH (15:00)
[2018-12-23] MEDS: CEFEPIME 2,000 MG in DEXT 5% WATER 100 ML IV SCH (15:23)
[2018-12-23 16:00] VITALS: BP 153/66
[2018-12-23 20:00] VITALS: BP 126/72
[2018-12-23] MEDS: LATANOPROST 0.005% OPHTH DROPS 2.5ML BOTHEYE SCH (21:02)
[2018-12-24] MEDS: METOCLOPRAMIDE HCL 10MG/2ML VIAL IV SCH ×5 (00:48→23:20)
[2018-12-24 04:00] VITALS: BP 161/76
[2018-12-24] MEDS: BLOOD SUGAR DIAGNOSTIC STRIP TEST SCH ×4 (05:44→20:26)
[2018-12-24] MEDS: INSULIN LISPRO 100 UNITS/ML SUBCUT SCH ×4 (06:03→20:26)
[2018-12-24 08:15] VITALS: BP 137/71
[2018-12-24] MEDS: AMLODIPINE 5MG TABLET PO SCH ×2 (09:22→20:26)
[2018-12-24 12:10] VITALS: BP 130/67
[2018-12-24] MEDS: CEFEPIME 2,000 MG in DEXT 5% WATER 100 ML IV SCH (13:01)
[2018-12-24 13:16] LABS: BASOPHILS % 0.4 % (0.0-2.0); EOSINOPHILS % 2.5 % (0.0-5.0); HEMATOCRIT. 30.7 % (36.0-48.0); HEMOGLOBIN. 9.7 g/dL (12.0-16.0); LYMPHOCYTES % 9.4 % (20.0-50.0); MEAN CORPUSCULAR HEMOGLOBIN 28.5 pg (28.0-32.0); MEAN CORPUSCULAR VOLUME 90.1 fL (81.0-99.0); MEAN PLATELET VOLUME 7.7 fl (7.4-10.4); MONOCYTES % 6.8 % (2.0-8.0); NEUTROPHILS % 80.9 % (40.0-76.0); PLATELET 257 x1000/uL (130-400); RED BLOOD CELL COUNT 3.41 mill/uL (4.2-5.4)
[2018-12-24] MEDS: ENOXAPARIN 40MG/0.4ML SYR SUBCUT SCH (15:00)
[2018-12-24] MEDS: LACTULOSE 20G/30ML UDC PO SCH ×2 (16:43→21:48)
[2018-12-24 16:45] VITALS: BP 141/72
[2018-12-24] MEDS: ONDANSETRON HCL 4MG/2ML INJ IV PRN (16:48)
[2018-12-24] MEDS ORDERED: LORAZEPAM 0.5MG TABLET PO SCH (19:00)
[2018-12-24 20:00] VITALS: BP 139/73
[2018-12-24] MEDS: LATANOPROST 0.005% OPHTH DROPS 2.5ML BOTHEYE SCH (20:26)
[2018-12-25] VITALS: BP 179/60
[2018-12-25 04:00] VITALS: BP 147/57
[2018-12-25] MEDS: LACTULOSE 20G/30ML UDC PO SCH ×4 (05:58→21:05)
[2018-12-25] MEDS: METOCLOPRAMIDE HCL 10MG/2ML VIAL IV SCH ×3 (05:58→18:00)
[2018-12-25] MEDS: INSULIN LISPRO 100 UNITS/ML SUBCUT SCH ×5 (06:19→21:00)
[2018-12-25] MEDS: BLOOD SUGAR DIAGNOSTIC STRIP TEST SCH ×5 (06:19→21:00)
[2018-12-25] MEDS: ACETAMINOPHEN 325MG TABLET PO PRN (07:36)
[2018-12-25 08:00] VITALS: BP 140/71
[2018-12-25] MEDS ORDERED: SODIUM BICARBONATE 4% (2.4MEQ) 5ML VIAL IV ONE (08:00)
[2018-12-25] MEDS ORDERED: LIDOCAINE HCL 1% 20ML VIAL (Pyxis) INJ ONE (08:00)
[2018-12-25] MEDS ORDERED: IOHEXOL-300 50 ML BOTTLE IV ONE (08:40)
[2018-12-25] MEDS: AMLODIPINE 5MG TABLET PO SCH ×2 (09:00→21:00)
[2018-12-25 12:00] VITALS: BP 134/65
[2018-12-25] MEDS ORDERED: HEPARIN SODIUM 1,000 UNIT/1ML VIAL IV NR (13:00)
[2018-12-25] MEDS: CEFEPIME 2,000 MG in DEXT 5% WATER 100 ML IV SCH (14:59)
[2018-12-25] MEDS: ENOXAPARIN 40MG/0.4ML SYR SUBCUT SCH (15:00)
[2018-12-25 16:00] VITALS: BP 134/62
[2018-12-25] MEDS ORDERED: LORAZEPAM 2MG/ML CPJ IV PRN (17:00)
[2018-12-25 20:00] VITALS: BP 143/63
[2018-12-25] MEDS: LATANOPROST 0.005% OPHTH DROPS 2.5ML BOTHEYE SCH (21:04)
[2018-12-26] VITALS (16 sets, daily range): BP systolic 125–212; BP diastolic 63–92
[2018-12-26] MEDS: METOCLOPRAMIDE HCL 10MG/2ML VIAL IV SCH ×5 (00:22→17:04)
[2018-12-26] MEDS: CLONIDINE 0.1MG TABLET PO PRN (00:23)
[2018-12-26] MEDS: LACTULOSE 20G/30ML UDC PO SCH ×2 (05:12→14:00)
[2018-12-26] MEDS: INSULIN LISPRO 100 UNITS/ML SUBCUT SCH ×3 (08:10→17:03)
[2018-12-26] MEDS: BLOOD SUGAR DIAGNOSTIC STRIP TEST SCH ×3 (08:21→17:03)
[2018-12-26] MEDS: AMLODIPINE 5MG TABLET PO SCH (09:00)
[2018-12-26] MEDS ORDERED: FENTANYL CITRATE/PF 50MCG/ML 2ML VIAL ONE (13:43)
[2018-12-26] MEDS ORDERED: LIDOCAINE HCL 1% 20ML VIAL (Pyxis) INJ ONE (13:45)
[2018-12-26] MEDS ORDERED: HEPARIN 1000 UNITS/ML 10ML ONE (13:45)
[2018-12-26] MEDS ORDERED: SODIUM BICARBONATE 4% (2.4MEQ) 5ML VIAL IV ONE (13:45)
[2018-12-26] MEDS ORDERED: FENTANYL CITRATE/PF 50MCG/ML 2ML VIAL IV NR (14:45)
[2018-12-26] MEDS: ENOXAPARIN 40MG/0.4ML SYR SUBCUT SCH (15:00)
[2018-12-26] MEDS: CEFEPIME 2,000 MG in DEXT 5% WATER 100 ML IV SCH (15:20)
== END 2018-12-26 18:17 | disposition home or self-care (01) | DRG 286 ==
LOC: 8WST 10:44 → 7WST 12-25 17:24
PROVIDERS: ADMIT Internal Medicine Nephrology; ATTEND Internal Medicine Nephrology
PROC: B5181ZA Fluoroscopy of Superior Vena Cava using Low Osmolar Contrast, Guidance (ICD-10-PCS; principal; 2018-12-20)
PROC: 02HV33Z Insertion of Infusion Device into Superior Vena Cava, Percutaneous Approach (ICD-10-PCS; 2018-12-20)
PROC: B548ZZA Ultrasonography of Superior Vena Cava, Guidance (ICD-10-PCS; 2018-12-20)
PROC: 0JPT3XZ Removal of Tunneled Vascular Access Device from Trunk Subcutaneous Tissue and Fascia, Percutaneous Approach (ICD-10-PCS; 2018-12-23)
PROC: B548ZZA Ultrasonography of Superior Vena Cava, Guidance (ICD-10-PCS; 2018-12-25)
PROC: B5181ZZ Fluoroscopy of Superior Vena Cava using Low Osmolar Contrast (ICD-10-PCS; 2018-12-25)
PROC: B5181ZA Fluoroscopy of Superior Vena Cava using Low Osmolar Contrast, Guidance (ICD-10-PCS; 2018-12-25)
PROC: 02HV33Z Insertion of Infusion Device into Superior Vena Cava, Percutaneous Approach (ICD-10-PCS; 2018-12-25)
PROC: 5A1D70Z Performance of Urinary Filtration, Intermittent, Less than 6 Hours Per Day (ICD-10-PCS; 2018-12-25)
PROC: B2141ZZ Fluoroscopy of Right Heart using Low Osmolar Contrast (ICD-10-PCS; 2018-12-26)
PROC: 02PYX3Z Removal of Infusion Device from Great Vessel, External Approach (ICD-10-PCS; 2018-12-26)
PROC: 0JH63XZ Insertion of Tunneled Vascular Access Device into Chest Subcutaneous Tissue and Fascia, Percutaneous Approach (ICD-10-PCS; 2018-12-26)
PROC: 02H633Z Insertion of Infusion Device into Right Atrium, Percutaneous Approach (ICD-10-PCS; 2018-12-26)
PROC: B244ZZZ Ultrasonography of Right Heart (ICD-10-PCS; 2018-12-26)
DX: T80.218A Other infection due to central venous catheter, initial encounter (principal); N18.6 End stage renal disease; A41.52 Sepsis due to Pseudomonas; N39.0 Urinary tract infection, site not specified; I12.0 Hypertensive chronic kidney disease with stage 5 chronic kidney disease or end stage renal disease; Z68.43 Body mass index [BMI] 50.0-59.9, adult; Z99.2 Dependence on renal dialysis; I16.0 Hypertensive urgency; K31.84 Gastroparesis; E11.22 Type 2 diabetes mellitus with diabetic chronic kidney disease; E11.43 Type 2 diabetes mellitus with diabetic autonomic (poly)neuropathy; E66.01 Morbid (severe) obesity due to excess calories; Y83.8 Other surgical procedures as the cause of abnormal reaction of the patient, or of later complication, without mention of misadventure at the time of the procedure; Y92.89 Other specified places as the place of occurrence of the external cause; Z90.49 Acquired absence of other specified parts of digestive tract; Z71.3 Dietary counseling and surveillance; Z88.1 Allergy status to other antibiotic agents; Z88.8 Allergy status to other drugs, medicaments and biological substances
CPT/HCPCS: 36010; 36415; 36558; 36573; 36589; 71250; 75827; 77001; 78806; 80048; 80202; 82962; 84100; 84145; 87070; 87077; 87186; 93308; A9547; C1725; C1752; C1769; J0692; J1642; J1644; J1650; J1815; J2405; J2765; J3010; J3370; J3490; J7060; L8514; Q9967

== ENCOUNTER 2019-01-02 18:53 | Emergency (ER) | payer MEDICARE, MEDICAID ==
[~2019-01-02] VITALS: Ht 165.1 cm; Wt 133.7 kg
[~2019-01-02 18:53] MED LIST changes: -CLOP75TA33 PO; -INSHUMSS SUBCUT
[2019-01-02 23:39] LABS: BASOPHILS % 0.4 % (0.0-2.0); EOSINOPHILS % 6.3 % (0.0-5.0); HEMATOCRIT. 33.8 % (36.0-48.0); HEMOGLOBIN. 10.7 g/dL (12.0-16.0); MEAN CORPUSCULAR VOLUME 91.7 fL (81.0-99.0); MEAN PLATELET VOLUME 7.4 fl (7.4-10.4); MONOCYTES % 6.5 % (2.0-8.0); NEUTROPHILS % 63.8 % (40.0-76.0); PLATELET 366 x1000/uL (130-400); RED BLOOD CELL COUNT 3.69 mill/uL (4.2-5.4); RED CELL DISTRIBUTION WIDTH 15.7 % (11.6-14.6)
[2019-01-03] MEDS ORDERED: MINERAL OIL ENEMA 133ML PR ONE (02:30)
[2019-01-03 04:31] VITALS: BP 160/70
== END 2019-01-03 04:54 | disposition home or self-care (01) ==
LOC: ER 18:53
DX: K59.00 Constipation, unspecified (principal); E11.22 Type 2 diabetes mellitus with diabetic chronic kidney disease; I13.11 Hypertensive heart and chronic kidney disease without heart failure, with stage 5 chronic kidney disease, or end stage renal disease; N18.6 End stage renal disease; Z99.2 Dependence on renal dialysis; Z79.4 Long term (current) use of insulin; Z88.1 Allergy status to other antibiotic agents; Z79.899 Other long term (current) drug therapy; Z98.61 Coronary angioplasty status; Z86.73 Personal history of transient ischemic attack (TIA), and cerebral infarction without residual deficits
CPT/HCPCS: 36415; 74022; 80048; 99284

== ENCOUNTER 2019-01-31 10:41 | Inpatient (IN) | payer MEDICARE, MEDICAID ==
[~2019-01-31] VITALS: Ht 170.2 cm; Wt 132.2 kg
[~2019-01-31 10:41] MED LIST changes: -CARV25TA47 PO; -CHOL100046 PO
[2019-01-31 11:24] LABS: BASOPHILS % 0.7 % (0.0-2.0); EOSINOPHILS % 3.7 % (0.0-5.0); HEMATOCRIT. 32.5 % (36.0-48.0); HEMOGLOBIN. 10.8 g/dL (12.0-16.0); LYMPHOCYTES % 18.1 % (20.0-50.0); MEAN CORPUSCULAR HEMOGLOBIN 29.6 pg (28.0-32.0); MEAN CORPUSCULAR VOLUME 88.9 fL (81.0-99.0); MEAN PLATELET VOLUME 8.3 fl (7.4-10.4); MONOCYTES % 3.8 % (2.0-8.0); NEUTROPHILS % 73.7 % (40.0-76.0); PLATELET 251 x1000/uL (130-400); RED BLOOD CELL COUNT 3.65 mill/uL (4.2-5.4); RED CELL DISTRIBUTION WIDTH 14.2 % (11.6-14.6)
[2019-01-31 11:29] LABS: CHLORIDE 102 mEq/L (98-107)
[2019-01-31 11:33] LABS: PROTHROMBIN TIME 10.3 sec (9.6-11.0)
[2019-01-31] MEDS ORDERED: HYDRALAZINE 20MG/ML VIAL IV ONE (12:00)
[2019-01-31 12:24] LABS: CLARITY URINE CLEAR (CLEAR); COLOR URINE YELLOW (YELLOW); KETONES URINE NEGATIVE (NEGATIVE); LEUKOCYTE ESTERASE URINE NEGATIVE (NEGATIVE); NITRITE URINE NEGATIVE (NEGATIVE); OCCULT BLOOD URINE NEGATIVE (NEGATIVE); PH URINE >=9.0 (4.5-8.0); PROTEIN URINE 3+ (NEGATIVE); SPECIFIC GRAVITY URINE 1.014 (1.005-1.030); UROBILINOGEN URINE 0.2 E.U./dL (0.2-1.0)
[2019-01-31 15:38] VITALS: BP 159/84
[2019-01-31 16:00] VITALS: BP 165/70
[2019-01-31] MEDS ORDERED: MAGNESIUM/ALUMINUM HYDROXIDE/SIMETHICONE 30ML UDC PO PRN (17:00)
[2019-01-31] MEDS ORDERED: DEXTROSE 50% WATER 50ML SYRINGE IV PRN ×2 (17:00)
[2019-01-31] MEDS ORDERED: DIPHENHYDRAMINE 50MG/ML VIAL IV PRN (17:00)
[2019-01-31] MEDS ORDERED: ACETAMINOPHEN 325MG TABLET PO PRN (17:00)
[2019-01-31] MEDS ORDERED: HYDROCODONE/ACETAMINOPHEN 5/325MG TABLET PO PRN (17:00)
[2019-01-31] MEDS ORDERED: DOCUSATE SODIUM 100MG CAPSULE PO PRN (17:00)
[2019-01-31] MEDS: INSULIN LISPRO 100 UNITS/ML SUBCUT SCH ×2 (17:20→20:20)
[2019-01-31] MEDS: ENOXAPARIN 40MG/0.4ML SYR SUBCUT SCH (18:00)
[2019-01-31] MEDS: BLOOD SUGAR DIAGNOSTIC STRIP TEST SCH ×2 (18:00→20:20)
[2019-01-31 19:42] LABS: *BARBITURATES SCREEN URINE NEGATIVE (NEGATIVE); CANNABINOID URINE SCREEN NEGATIVE (NEGATIVE); METHADONE URINE SCREEN NEGATIVE (NEGATIVE); OPIATES URINE SCREEN NEGATIVE (NEGATIVE); PHENCYCLIDINE URINE SCREEN NEGATIVE (NEGATIVE)
[2019-01-31 19:43] LABS: *AMPHETAMINES SCREEN URINE NEGATIVE (NEGATIVE); *BENZODIAZEPINES SCREEN URINE NEGATIVE (NEGATIVE); *COCAINE SCREEN URINE NEGATIVE (NEGATIVE)
[2019-01-31 20:08] VITALS: BP 150/71
[2019-01-31] MEDS: LATANOPROST 0.005% OPHTH DROPS 2.5ML EACHEYE SCH (20:32)
[2019-01-31] MEDS: ONDANSETRON HCL 4MG/2ML INJ IV PRN (20:32)
[2019-01-31 22:00] VITALS: BP 161/69
[2019-01-31 22:12] VITALS: BP 170/70
[2019-01-31] MEDS: CLONIDINE 0.1MG TABLET PO PRN (22:18)
[2019-02-01] VITALS (14 sets, daily range): BP systolic 95–195; BP diastolic 47–81
[2019-02-01] MEDS: ONDANSETRON HCL 4MG/2ML INJ IV PRN (05:41)
[2019-02-01] MEDS: LEVOTHYROXINE SODIUM 75MCG TABLET PO SCH (06:06)
[2019-02-01] MEDS: BLOOD SUGAR DIAGNOSTIC STRIP TEST SCH ×4 (06:13→21:00)
[2019-02-01] MEDS: INSULIN LISPRO 100 UNITS/ML SUBCUT SCH ×4 (06:23→22:04)
[2019-02-01 07:25] LABS: BASOPHILS % 0.6 % (0.0-2.0); EOSINOPHILS % 2.9 % (0.0-5.0); HEMATOCRIT. 30.8 % (36.0-48.0); HEMOGLOBIN. 10.1 g/dL (12.0-16.0); LYMPHOCYTES % 14.9 % (20.0-50.0); MEAN CORPUSCULAR HEMOGLOBIN 29.4 pg (28.0-32.0); MEAN CORPUSCULAR VOLUME 89.8 fL (81.0-99.0); MONOCYTES % 6.4 % (2.0-8.0); NEUTROPHILS % 75.2 % (40.0-76.0); RED BLOOD CELL COUNT 3.43 mill/uL (4.2-5.4); RED CELL DISTRIBUTION WIDTH 14.3 % (11.6-14.6)
[2019-02-01 07:30] LABS: CHLORIDE 103 mEq/L (98-107)
[2019-02-01 07:37] LABS: PHOSPHORUS 4.1 mg/dL (2.5-4.9)
[2019-02-01 07:38] LABS: LDL CHOLESTEROL 63 mg/dL (5-100)
[2019-02-01 07:42] LABS: HDL CHOLESTEROL 39 mg/dL (40-59)
[2019-02-01] MEDS: ATORVASTATIN CALCIUM 20MG TABLET PO SCH (09:00)
[2019-02-01] MEDS: ASPIRIN 81MG EC TABLET PO SCH (09:00)
[2019-02-01] MEDS: FOLIC ACID 1MG TABLET PO SCH (09:00)
[2019-02-01] MEDS: CALCIUM ACETATE 667MG CAPSULE PO SCH ×2 (09:00→14:57)
[2019-02-01] MEDS ORDERED: METOCLOPRAMIDE HCL 10MG/2ML VIAL IV NR (09:45)
[2019-02-01] MEDS ORDERED: ENALAPRIL 2.5MG/2ML VIAL 2ML IV NR (09:45)
[2019-02-01] MEDS: LOSARTAN POTASSIUM 50 MG TABLET PO SCH (10:00)
[2019-02-01] MEDS: METOCLOPRAMIDE HCL 10MG/2ML VIAL IV SCH ×3 (12:00→23:05)
[2019-02-01 14:12] LABS: PLATELET 235 x1000/uL (130-400)
[2019-02-01] MEDS: ENOXAPARIN 40MG/0.4ML SYR SUBCUT SCH (16:57)
[2019-02-01] MEDS: SEVELAMER CARBONATE 800 MG TABLET PO SCH (16:57)
[2019-02-01] MEDS: AMLODIPINE 10MG TABLET PO SCH (16:58)
[2019-02-01] MEDS: LATANOPROST 0.005% OPHTH DROPS 2.5ML EACHEYE SCH (21:53)
[2019-02-02] VITALS (17 sets, daily range): BP systolic 105–171; BP diastolic 50–79
[2019-02-02 00:54] LABS: PHOSPHORUS 4.8 mg/dL (2.5-4.9)
[2019-02-02] MEDS: METOCLOPRAMIDE HCL 10MG/2ML VIAL IV SCH ×4 (05:54→20:00)
[2019-02-02] MEDS: LEVOTHYROXINE SODIUM 75MCG TABLET PO SCH (05:54)
[2019-02-02 06:16] LABS: BASOPHILS % 0.9 % (0.0-2.0); HEMATOCRIT. 29.4 % (36.0-48.0); HEMOGLOBIN. 9.7 g/dL (12.0-16.0); LYMPHOCYTES % 22.9 % (20.0-50.0); MEAN CORPUSCULAR HEMOGLOBIN 29.5 pg (28.0-32.0); MEAN CORPUSCULAR VOLUME 89.5 fL (81.0-99.0); MEAN PLATELET VOLUME 8.1 fl (7.4-10.4); MONOCYTES % 9.3 % (2.0-8.0); NEUTROPHILS % 61.9 % (40.0-76.0); PLATELET 232 x1000/uL (130-400); RED BLOOD CELL COUNT 3.28 mill/uL (4.2-5.4); RED CELL DISTRIBUTION WIDTH 14.6 % (11.6-14.6)
[2019-02-02] MEDS: BLOOD SUGAR DIAGNOSTIC STRIP TEST SCH ×4 (06:18→20:55)
[2019-02-02] MEDS: INSULIN LISPRO 100 UNITS/ML SUBCUT SCH ×4 (06:41→20:56)
[2019-02-02] MEDS: SEVELAMER CARBONATE 800 MG TABLET PO SCH ×4 (07:20→17:39)
[2019-02-02] MEDS: LOSARTAN POTASSIUM 50 MG TABLET PO SCH (09:00)
[2019-02-02] MEDS: AMLODIPINE 10MG TABLET PO SCH (09:00)
[2019-02-02] MEDS: ATORVASTATIN CALCIUM 20MG TABLET PO SCH (09:00)
[2019-02-02] MEDS: FOLIC ACID 1MG TABLET PO SCH (09:00)
[2019-02-02] MEDS: ASPIRIN 81MG EC TABLET PO SCH (09:00)
[2019-02-02] MEDS ORDERED: MECLIZINE 25MG TABLET PO PRN (10:00)
[2019-02-02] MEDS: ONDANSETRON HCL 4MG/2ML INJ IV SCH ×3 (12:00→20:00)
[2019-02-02] MEDS: ENOXAPARIN 40MG/0.4ML SYR SUBCUT SCH (17:11)
[2019-02-02] MEDS: LATANOPROST 0.005% OPHTH DROPS 2.5ML EACHEYE SCH (20:55)
[2019-02-03] VITALS (17 sets, daily range): BP systolic 95–156; BP diastolic 53–85
[2019-02-03] MEDS: ONDANSETRON HCL 4MG/2ML INJ IV SCH ×6 (04:00→19:59)
[2019-02-03] MEDS: METOCLOPRAMIDE HCL 10MG/2ML VIAL IV SCH ×6 (04:00→20:00)
[2019-02-03] MEDS: BLOOD SUGAR DIAGNOSTIC STRIP TEST SCH ×4 (06:11→20:46)
[2019-02-03] MEDS: LEVOTHYROXINE SODIUM 75MCG TABLET PO SCH (06:13)
[2019-02-03] MEDS: INSULIN LISPRO 100 UNITS/ML SUBCUT SCH ×4 (07:20→20:53)
[2019-02-03] MEDS: FOLIC ACID 1MG TABLET PO SCH (08:57)
[2019-02-03] MEDS: SEVELAMER CARBONATE 800 MG TABLET PO SCH ×3 (08:57→17:56)
[2019-02-03] MEDS: ATORVASTATIN CALCIUM 20MG TABLET PO SCH (08:58)
[2019-02-03] MEDS: ASPIRIN 81MG EC TABLET PO SCH (08:58)
[2019-02-03] MEDS: AMLODIPINE 10MG TABLET PO SCH (09:00)
[2019-02-03] MEDS: LOSARTAN POTASSIUM 50 MG TABLET PO SCH (09:00)
[2019-02-03] MEDS: ENOXAPARIN 40MG/0.4ML SYR SUBCUT SCH (17:58)
[2019-02-03] MEDS: MIDODRINE HCL 2.5MG TABLET PO SCH ×2 (19:04→19:45)
[2019-02-03] MEDS: LATANOPROST 0.005% OPHTH DROPS 2.5ML EACHEYE SCH (20:55)
[2019-02-04] VITALS (15 sets, daily range): BP systolic 102–190; BP diastolic 61–96
[2019-02-04] MEDS: METOCLOPRAMIDE HCL 10MG/2ML VIAL IV SCH ×6 (00:36→19:57)
[2019-02-04] MEDS ORDERED: INSULIN LISPRO 100 UNITS/ML SUBCUT SCH (06:50)
[2019-02-04] MEDS ORDERED: BLOOD SUGAR DIAGNOSTIC STRIP TEST SCH (06:50)
[2019-02-04] MEDS ORDERED: LEVOTHYROXINE SODIUM 75MCG TABLET PO SCH (06:50)
[2019-02-04] MEDS: INSULIN LISPRO 100 UNITS/ML SUBCUT SCH ×4 (06:50→21:51)
[2019-02-04] MEDS: SEVELAMER CARBONATE 800 MG TABLET PO SCH ×3 (06:55→19:57)
[2019-02-04] MEDS: BLOOD SUGAR DIAGNOSTIC STRIP TEST SCH ×4 (06:55→21:35)
[2019-02-04] MEDS: LEVOTHYROXINE SODIUM 75MCG TABLET PO SCH (06:56)
[2019-02-04 07:09] LABS: BASOPHILS % 0.7 % (0.0-2.0); EOSINOPHILS % 6.7 % (0.0-5.0); HEMATOCRIT. 30.1 % (36.0-48.0); HEMOGLOBIN. 9.6 g/dL (12.0-16.0); LYMPHOCYTES % 28.9 % (20.0-50.0); MEAN CORPUSCULAR VOLUME 90.7 fL (81.0-99.0); MEAN PLATELET VOLUME 8.1 fl (7.4-10.4); MONOCYTES % 8.9 % (2.0-8.0); NEUTROPHILS % 54.8 % (40.0-76.0); PLATELET 221 x1000/uL (130-400); RED BLOOD CELL COUNT 3.32 mill/uL (4.2-5.4); RED CELL DISTRIBUTION WIDTH 14.6 % (11.6-14.6)
[2019-02-04 07:54] LABS: HEPATITIS B SURFACE ANTIGEN NEGATIVE
[2019-02-04] MEDS: ASPIRIN 81MG EC TABLET PO SCH (08:50)
[2019-02-04] MEDS: FOLIC ACID 1MG TABLET PO SCH (08:51)
[2019-02-04] MEDS: ATORVASTATIN CALCIUM 20MG TABLET PO SCH (08:51)
[2019-02-04] MEDS: LOSARTAN POTASSIUM 50 MG TABLET PO SCH (08:52)
[2019-02-04] MEDS: AMLODIPINE 10MG TABLET PO SCH (08:52)
[2019-02-04] MEDS ORDERED: MIDODRINE HCL 2.5MG TABLET PO SCH (09:00)
[2019-02-04] MEDS ORDERED: ZOLPIDEM TARTRATE 5MG TABLET PO PRN (15:45)
[2019-02-04] MEDS: ENOXAPARIN 40MG/0.4ML SYR SUBCUT SCH (17:46)
[2019-02-04] MEDS: PAROXETINE HCL 10MG TABLET PO SCH (21:00)
[2019-02-04] MEDS: LATANOPROST 0.005% OPHTH DROPS 2.5ML EACHEYE SCH (21:48)
[2019-02-05] VITALS (12 sets, daily range): BP systolic 100–180; BP diastolic 58–86
[2019-02-05] MEDS: METOCLOPRAMIDE HCL 10MG/2ML VIAL IV SCH ×6 (00:09→20:47)
[2019-02-05] MEDS: CLONIDINE 0.1MG TABLET PO PRN (02:20)
[2019-02-05] MEDS: LEVOTHYROXINE SODIUM 75MCG TABLET PO SCH (06:06)
[2019-02-05] MEDS: BLOOD SUGAR DIAGNOSTIC STRIP TEST SCH ×4 (06:15→20:47)
[2019-02-05] MEDS: INSULIN LISPRO 100 UNITS/ML SUBCUT SCH ×4 (06:15→20:49)
[2019-02-05] MEDS: AMLODIPINE 10MG TABLET PO SCH (08:50)
[2019-02-05] MEDS: ATORVASTATIN CALCIUM 20MG TABLET PO SCH (08:51)
[2019-02-05] MEDS: FOLIC ACID 1MG TABLET PO SCH (08:51)
[2019-02-05] MEDS: LOSARTAN POTASSIUM 50 MG TABLET PO SCH (08:51)
[2019-02-05] MEDS: ASPIRIN 81MG EC TABLET PO SCH (08:51)
[2019-02-05] MEDS: SEVELAMER CARBONATE 800 MG TABLET PO SCH ×3 (08:55→17:46)
[2019-02-05] MEDS: ENOXAPARIN 40MG/0.4ML SYR SUBCUT SCH (17:45)
[2019-02-05] MEDS: PAROXETINE HCL 10MG TABLET PO SCH (20:47)
[2019-02-05] MEDS: LATANOPROST 0.005% OPHTH DROPS 2.5ML EACHEYE SCH (20:47)
[2019-02-06] VITALS (14 sets, daily range): BP systolic 86–196; BP diastolic 42–93
[2019-02-06] MEDS: METOCLOPRAMIDE HCL 10MG/2ML VIAL IV SCH ×6 (00:08→20:16)
[2019-02-06 06:02] LABS: BASOPHILS % 0.9 % (0.0-2.0); EOSINOPHILS % 6.5 % (0.0-5.0); HEMATOCRIT. 30.1 % (36.0-48.0); HEMOGLOBIN. 9.8 g/dL (12.0-16.0); LYMPHOCYTES % 26.9 % (20.0-50.0); MEAN CORPUSCULAR HEMOGLOBIN 29.5 pg (28.0-32.0); MEAN CORPUSCULAR VOLUME 90.5 fL (81.0-99.0); MONOCYTES % 8.1 % (2.0-8.0); NEUTROPHILS % 57.6 % (40.0-76.0); PLATELET 251 x1000/uL (130-400); RED BLOOD CELL COUNT 3.33 mill/uL (4.2-5.4); RED CELL DISTRIBUTION WIDTH 14.3 % (11.6-14.6)
[2019-02-06] MEDS: LEVOTHYROXINE SODIUM 75MCG TABLET PO SCH (06:15)
[2019-02-06] MEDS: BLOOD SUGAR DIAGNOSTIC STRIP TEST SCH ×4 (06:15→20:17)
[2019-02-06] MEDS: INSULIN LISPRO 100 UNITS/ML SUBCUT SCH ×4 (06:50→20:34)
[2019-02-06] MEDS: ASPIRIN 81MG EC TABLET PO SCH (08:46)
[2019-02-06] MEDS: SEVELAMER CARBONATE 800 MG TABLET PO SCH ×4 (08:46→18:47)
[2019-02-06] MEDS: ATORVASTATIN CALCIUM 20MG TABLET PO SCH (08:46)
[2019-02-06] MEDS: FOLIC ACID 1MG TABLET PO SCH (08:46)
[2019-02-06] MEDS: AMLODIPINE 10MG TABLET PO SCH (08:53)
[2019-02-06] MEDS: LOSARTAN POTASSIUM 50 MG TABLET PO SCH (09:00)
[2019-02-06] MEDS ORDERED: FLUDROCORTISONE ACETATE 0.1MG TABLET PO SCH (12:00)
[2019-02-06] MEDS: MIDODRINE HCL 5MG TABLET PO SCH ×2 (12:02→20:00)
[2019-02-06] MEDS: ENOXAPARIN 40MG/0.4ML SYR SUBCUT SCH (18:10)
[2019-02-06] MEDS: CLONIDINE 0.1MG TABLET PO PRN (20:16)
[2019-02-06] MEDS: PAROXETINE HCL 10MG TABLET PO SCH (20:25)
[2019-02-06] MEDS: LATANOPROST 0.005% OPHTH DROPS 2.5ML EACHEYE SCH (20:28)
[2019-02-06] MEDS ORDERED: HYDRALAZINE HCL 25MG TABLET PO PRN (21:52)
[2019-02-07] VITALS: BP 188/99
[2019-02-07 04:00] VITALS: BP 160/71
[2019-02-07] MEDS: METOCLOPRAMIDE HCL 10MG/2ML VIAL IV SCH ×3 (05:15→09:08)
[2019-02-07 06:00] VITALS: BP 179/75
[2019-02-07] MEDS: LEVOTHYROXINE SODIUM 75MCG TABLET PO SCH (06:18)
[2019-02-07] MEDS: BLOOD SUGAR DIAGNOSTIC STRIP TEST SCH (06:22)
[2019-02-07] MEDS: INSULIN LISPRO 100 UNITS/ML SUBCUT SCH (06:50)
[2019-02-07 08:00] VITALS: BP 124/60
[2019-02-07] MEDS: LOSARTAN POTASSIUM 50 MG TABLET PO SCH (09:00)
[2019-02-07] MEDS: MIDODRINE HCL 5MG TABLET PO SCH (09:00)
[2019-02-07] MEDS: AMLODIPINE 10MG TABLET PO SCH (09:00)
[2019-02-07] MEDS: FOLIC ACID 1MG TABLET PO SCH (09:08)
[2019-02-07] MEDS: ASPIRIN 81MG EC TABLET PO SCH (09:08)
[2019-02-07] MEDS: SEVELAMER CARBONATE 800 MG TABLET PO SCH (09:08)
[2019-02-07] MEDS: ATORVASTATIN CALCIUM 20MG TABLET PO SCH (09:10)
[2019-02-07 09:54] VITALS: BP 145/62
== END 2019-02-07 11:52 | DRG 73 ==
LOC: ER 10:50 → ENRESERV 14:07 → 3WST 14:31 → UNDOADMIN 14:31 → UNDODISIN 02-07 10:00 → 3WST 02-07 11:48
PROVIDERS: ADMIT Internal Medicine Nephrology; ATTEND Internal Medicine
PROC: 5A1D70Z Performance of Urinary Filtration, Intermittent, Less than 6 Hours Per Day (ICD-10-PCS; principal; 2019-02-01)
PROC: 5A1D70Z Performance of Urinary Filtration, Intermittent, Less than 6 Hours Per Day (ICD-10-PCS; 2019-02-03)
PROC: 5A1D70Z Performance of Urinary Filtration, Intermittent, Less than 6 Hours Per Day (ICD-10-PCS; 2019-02-07)
DX: G90.8 Other disorders of autonomic nervous system (principal); N18.6 End stage renal disease; I13.2 Hypertensive heart and chronic kidney disease with heart failure and with stage 5 chronic kidney disease, or end stage renal disease; I50.32 Chronic diastolic (congestive) heart failure; J98.11 Atelectasis; Z68.42 Body mass index [BMI] 45.0-49.9, adult; I16.0 Hypertensive urgency; I95.1 Orthostatic hypotension; D63.1 Anemia in chronic kidney disease; E11.43 Type 2 diabetes mellitus with diabetic autonomic (poly)neuropathy; E11.22 Type 2 diabetes mellitus with diabetic chronic kidney disease; K31.84 Gastroparesis; E11.21 Type 2 diabetes mellitus with diabetic nephropathy; E66.01 Morbid (severe) obesity due to excess calories; I25.10 Atherosclerotic heart disease of native coronary artery without angina pectoris; E78.5 Hyperlipidemia, unspecified; E03.9 Hypothyroidism, unspecified; E78.00 Pure hypercholesterolemia, unspecified; R26.9 Unspecified abnormalities of gait and mobility; Z91.19 Patient's noncompliance with other medical treatment and regimen; I25.2 Old myocardial infarction; Z86.73 Personal history of transient ischemic attack (TIA), and cerebral infarction without residual deficits; Z99.2 Dependence on renal dialysis; Z79.899 Other long term (current) drug therapy; Z88.1 Allergy status to other antibiotic agents; Z79.82 Long term (current) use of aspirin; E11.319 Type 2 diabetes mellitus with unspecified diabetic retinopathy without macular edema; F41.8 Other specified anxiety disorders
CPT/HCPCS: 36415; 70551; 71045; 80048; 80061; 80305; 81003; 82140; 82962; 83036; 83605; 83735; 83970; 84100; 84145; 84443; 84484; 86705; 86803; 87340; 93005; 93880; 93970; 97112; 97161; 97166; 99285; J0360; J1650; J1815; J2405; J2765; J3490; J8597; A4315

== ENCOUNTER 2019-02-07 10:04 | Inpatient (IN) | payer MEDICARE, MEDICAID ==
[~2019-02-07] VITALS: Ht 165.1 cm; Wt 131.5 kg
[2019-02-07 12:00] VITALS: BP 155/55
[2019-02-07] MEDS ORDERED: DEXTROSE 50% WATER 50ML SYRINGE IV PRN (12:00)
[2019-02-07] MEDS: METOCLOPRAMIDE HCL 10MG TABLET PO SCH ×4 (12:00→21:51)
[2019-02-07] MEDS ORDERED: DIPHENHYDRAMINE 50MG CAPSULE PO PRN (12:00)
[2019-02-07] MEDS ORDERED: ACETAMINOPHEN 325MG TABLET PO PRN (12:00)
[2019-02-07] MEDS ORDERED: ZOLPIDEM TARTRATE 5MG TABLET PO PRN (12:00)
[2019-02-07] MEDS ORDERED: MECLIZINE 25MG TABLET PO PRN (12:00)
[2019-02-07] MEDS ORDERED: ONDANSETRON HCL 4MG TABLET PO PRN (12:00)
[2019-02-07 12:05] VITALS: BP 155/55
[2019-02-07] MEDS: SEVELAMER CARBONATE 800 MG TABLET PO SCH ×2 (13:00→16:22)
[2019-02-07] MEDS: PAROXETINE HCL 10MG TABLET PO SCH (13:15)
[2019-02-07] MEDS: LOSARTAN POTASSIUM 50 MG TABLET PO SCH ×3 (13:15→21:51)
[2019-02-07] MEDS ORDERED: MIDODRINE HCL 5MG TABLET PO SCH (13:15)
[2019-02-07] MEDS: AMLODIPINE 10MG TABLET PO SCH (13:15)
[2019-02-07] MEDS: MIDODRINE HCL 5MG TABLET PO SCH ×2 (13:45→21:00)
[2019-02-07] MEDS: DOCUSATE SODIUM 100MG CAPSULE PO PRN (14:02)
[2019-02-07] MEDS: ASPIRIN 81MG EC TABLET PO SCH (14:03)
[2019-02-07] MEDS: FOLIC ACID 1MG TABLET PO SCH (14:03)
[2019-02-07] MEDS: INSULIN LISPRO 100 UNITS/ML SUBCUT SCH ×3 (14:16→21:00)
[2019-02-07] MEDS: BLOOD SUGAR DIAGNOSTIC STRIP TEST SCH ×2 (16:22→21:52)
[2019-02-07 16:50] VITALS: BP 190/76
[2019-02-07 16:57] VITALS: BP 217/194
[2019-02-07 17:13] LABS: EOSINOPHILS % 6.7 % (0.0-5.0); HEMATOCRIT. 26.8 % (36.0-48.0); HEMOGLOBIN. 8.7 g/dL (12.0-16.0); LYMPHOCYTES % 23.2 % (20.0-50.0); MEAN CORPUSCULAR HEMOGLOBIN 28.9 pg (28.0-32.0); MEAN CORPUSCULAR VOLUME 89.1 fL (81.0-99.0); MEAN PLATELET VOLUME 8.1 fl (7.4-10.4); NEUTROPHILS % 59.1 % (40.0-76.0); PLATELET 216 x1000/uL (130-400); RED BLOOD CELL COUNT 3.01 mill/uL (4.2-5.4); RED CELL DISTRIBUTION WIDTH 13.8 % (11.6-14.6)
[2019-02-07 17:19] LABS: CHLORIDE 108 mEq/L (98-107)
[2019-02-07 17:49] VITALS: BP 134/54
[2019-02-07 20:00] VITALS: BP 135/47
[2019-02-07] MEDS: LATANOPROST 0.005% OPHTH DROPS 2.5ML EACHEYE SCH (21:50)
[2019-02-07] MEDS: ATORVASTATIN CALCIUM 20MG TABLET PO SCH (21:51)
[2019-02-07 23:44] LABS: BASOPHILS % 0.8 % (0.0-2.0); EOSINOPHILS % 6.3 % (0.0-5.0); HEMATOCRIT. 30.4 % (36.0-48.0); HEMOGLOBIN. 9.7 g/dL (12.0-16.0); LYMPHOCYTES % 21.5 % (20.0-50.0); MEAN CORPUSCULAR HEMOGLOBIN 29.4 pg (28.0-32.0); MEAN PLATELET VOLUME 8.3 fl (7.4-10.4); MONOCYTES % 8.4 % (2.0-8.0); PLATELET 204 x1000/uL (130-400); RED BLOOD CELL COUNT 3.31 mill/uL (4.2-5.4); RED CELL DISTRIBUTION WIDTH 14.1 % (11.6-14.6)
[2019-02-07] MEDS: ENOXAPARIN 40MG/0.4ML SYR SUBCUT SCH (23:58)
[2019-02-08] MEDS: METOCLOPRAMIDE HCL 10MG TABLET PO SCH ×3 (04:00→09:21)
[2019-02-08] MEDS: BLOOD SUGAR DIAGNOSTIC STRIP TEST SCH ×4 (06:04→21:34)
[2019-02-08] MEDS: LEVOTHYROXINE SODIUM 75MCG TABLET PO SCH (06:05)
[2019-02-08] MEDS: INSULIN LISPRO 100 UNITS/ML SUBCUT SCH ×4 (06:05→21:00)
[2019-02-08 07:18] LABS: BASOPHILS % 1.1 % (0.0-2.0); EOSINOPHILS % 6.1 % (0.0-5.0); HEMATOCRIT. 28.9 % (36.0-48.0); HEMOGLOBIN. 9.5 g/dL (12.0-16.0); LYMPHOCYTES % 26.1 % (20.0-50.0); MEAN CORPUSCULAR HEMOGLOBIN 29.4 pg (28.0-32.0); MEAN CORPUSCULAR VOLUME 89.4 fL (81.0-99.0); MEAN PLATELET VOLUME 8.5 fl (7.4-10.4); MONOCYTES % 9.1 % (2.0-8.0); NEUTROPHILS % 57.6 % (40.0-76.0); PLATELET 219 x1000/uL (130-400); RED BLOOD CELL COUNT 3.23 mill/uL (4.2-5.4); RED CELL DISTRIBUTION WIDTH 13.9 % (11.6-14.6)
[2019-02-08 07:43] LABS: CHLORIDE 110 mEq/L (98-107)
[2019-02-08 08:32] VITALS: BP 112/61
[2019-02-08] MEDS ORDERED: ENOXAPARIN 40MG/0.4ML SYR SUBCUT SCH (09:00)
[2019-02-08] MEDS: SEVELAMER CARBONATE 800 MG TABLET PO SCH ×3 (09:20→17:00)
[2019-02-08] MEDS: PAROXETINE HCL 10MG TABLET PO SCH (09:21)
[2019-02-08] MEDS: FOLIC ACID 1MG TABLET PO SCH (09:21)
[2019-02-08] MEDS: LOSARTAN POTASSIUM 50 MG TABLET PO SCH (09:21)
[2019-02-08] MEDS: AMLODIPINE 10MG TABLET PO SCH (09:21)
[2019-02-08] MEDS: ASPIRIN 81MG EC TABLET PO SCH (09:22)
[2019-02-08] MEDS: MIDODRINE HCL 5MG TABLET PO SCH ×4 (09:22→21:00)
[2019-02-08] MEDS: ONDANSETRON 4MG ODT PO PRN (12:57)
[2019-02-08 20:00] VITALS: BP 168/72
[2019-02-08] MEDS: ENOXAPARIN 40MG/0.4ML SYR SUBCUT SCH (21:00)
[2019-02-08] MEDS: ATORVASTATIN CALCIUM 20MG TABLET PO SCH (21:34)
[2019-02-08] MEDS: LATANOPROST 0.005% OPHTH DROPS 2.5ML EACHEYE SCH (21:36)
[2019-02-09] MEDS: LEVOTHYROXINE SODIUM 75MCG TABLET PO SCH (06:22)
[2019-02-09] MEDS: BLOOD SUGAR DIAGNOSTIC STRIP TEST SCH ×4 (06:22→21:33)
[2019-02-09] MEDS: INSULIN LISPRO 100 UNITS/ML SUBCUT SCH ×4 (06:23→21:00)
[2019-02-09 08:00] VITALS: BP 206/72
[2019-02-09] MEDS ORDERED: BISACODYL 10MG SUPP PR NR (08:00)
[2019-02-09] MEDS ORDERED: MAGNESIUM CITRATE 300ML SOLUTION PO NR (08:00)
[2019-02-09] MEDS: FOLIC ACID 1MG TABLET PO SCH (08:45)
[2019-02-09] MEDS: SEVELAMER CARBONATE 800 MG TABLET PO SCH ×3 (08:45→16:34)
[2019-02-09] MEDS: ASPIRIN 81MG EC TABLET PO SCH (08:45)
[2019-02-09] MEDS: MIDODRINE HCL 5MG TABLET PO SCH ×4 (09:00→21:00)
[2019-02-09] MEDS: LOSARTAN POTASSIUM 50 MG TABLET PO SCH (09:00)
[2019-02-09] MEDS: PAROXETINE HCL 10MG TABLET PO SCH (09:00)
[2019-02-09] MEDS: ONDANSETRON 4MG ODT PO PRN (11:10)
[2019-02-09 11:30] VITALS: BP_SYST 127; BP_SYST 153; BP_SYST 194; BP_DIAS 56; BP_DIAS 70
[2019-02-09] MEDS: METOCLOPRAMIDE HCL 10MG TABLET PO PRN (12:06)
[2019-02-09] MEDS: LIDOCAINE HCL 4% CREAM 76GM TUBE TP PRN (15:01)
[2019-02-09] MEDS ORDERED: NA PHOS,M-B/NA PHOS,DI-BA ENEMA 118ML PR NR (16:00)
[2019-02-09] MEDS: METOCLOPRAMIDE HCL 10MG/2ML VIAL IV PRN (16:23)
[2019-02-09 20:00] VITALS: BP 119/68
[2019-02-09] MEDS: AMLODIPINE 5MG TABLET PO SCH (21:00)
[2019-02-09] MEDS: ENOXAPARIN 40MG/0.4ML SYR SUBCUT SCH (21:00)
[2019-02-09] MEDS: LATANOPROST 0.005% OPHTH DROPS 2.5ML EACHEYE SCH (21:25)
[2019-02-09] MEDS: ATORVASTATIN CALCIUM 20MG TABLET PO SCH (21:26)
[2019-02-09] MEDS: EPOETIN ALFA 4000UNITS/ML VIAL SUBCUT SCH (21:28)
[2019-02-09 23:30] VITALS: BP_SYST 130; BP_SYST 96; BP_DIAS 58; BP_DIAS 65
[2019-02-10] MEDS: BLOOD SUGAR DIAGNOSTIC STRIP TEST SCH ×4 (05:48→20:48)
[2019-02-10] MEDS: LEVOTHYROXINE SODIUM 75MCG TABLET PO SCH (06:15)
[2019-02-10] MEDS: INSULIN LISPRO 100 UNITS/ML SUBCUT SCH ×4 (06:35→20:48)
[2019-02-10 07:07] LABS: HEMATOCRIT. 29.2 % (36.0-48.0); HEMOGLOBIN. 9.6 g/dL (12.0-16.0); LYMPHOCYTES % 19.7 % (20.0-50.0); MEAN CORPUSCULAR HEMOGLOBIN 29.3 pg (28.0-32.0); MEAN CORPUSCULAR VOLUME 89.5 fL (81.0-99.0); MEAN PLATELET VOLUME 8.3 fl (7.4-10.4); MONOCYTES % 8.9 % (2.0-8.0); NEUTROPHILS % 66.4 % (40.0-76.0); PLATELET 237 x1000/uL (130-400); RED BLOOD CELL COUNT 3.27 mill/uL (4.2-5.4); RED CELL DISTRIBUTION WIDTH 14.1 % (11.6-14.6)
[2019-02-10 08:00] VITALS: BP 114/57
[2019-02-10 08:30] LABS: CHLORIDE 108 mEq/L (98-107)
[2019-02-10 08:41] LABS: PHOSPHORUS 3.7 mg/dL (2.5-4.9); TOTAL IRON BINDING CAPACITY 239 ug/dL (250-450)
[2019-02-10] MEDS: ASPIRIN 81MG EC TABLET PO SCH (08:52)
[2019-02-10] MEDS: PAROXETINE HCL 10MG TABLET PO SCH ×2 (08:52→08:54)
[2019-02-10] MEDS: SEVELAMER CARBONATE 800 MG TABLET PO SCH ×3 (08:52→17:00)
[2019-02-10] MEDS: FOLIC ACID 1MG TABLET PO SCH (08:52)
[2019-02-10] MEDS: LOSARTAN POTASSIUM 50 MG TABLET PO SCH ×2 (08:54→13:59)
[2019-02-10] MEDS: MIDODRINE HCL 5MG TABLET PO SCH ×4 (09:00→20:47)
[2019-02-10 10:17] LABS: FOLIC ACID (FOLATE) SERUM >20 ng/mL ng/mL (>5.38)
[2019-02-10 10:19] LABS: FERRITIN 1099 ng/mL (10-291)
[2019-02-10 10:28] LABS: VITAMIN B12 SERUM 811 pg/mL (211-911)
[2019-02-10] MEDS: ONDANSETRON 4MG ODT PO PRN (11:58)
[2019-02-10] MEDS: LACTULOSE 20G/30ML UDC PO SCH ×2 (12:54→22:00)
[2019-02-10] MEDS: METOCLOPRAMIDE HCL 10MG TABLET PO PRN (13:00)
[2019-02-10 14:00] VITALS: BP 204/89
[2019-02-10 14:29] VITALS: BP 155/71
[2019-02-10 20:00] VITALS: BP 144/62
[2019-02-10] MEDS: ATORVASTATIN CALCIUM 20MG TABLET PO SCH (20:46)
[2019-02-10] MEDS: AMLODIPINE 5MG TABLET PO SCH (20:47)
[2019-02-10] MEDS: ENOXAPARIN 40MG/0.4ML SYR SUBCUT SCH (20:48)
[2019-02-10] MEDS: LATANOPROST 0.005% OPHTH DROPS 2.5ML EACHEYE SCH (21:00)
[2019-02-10 21:40] VITALS: BP 106/54
[2019-02-10 22:40] LABS: CLARITY URINE CLOUDY (CLEAR); COLOR URINE YELLOW (YELLOW); KETONES URINE NEGATIVE (NEGATIVE); LEUKOCYTE ESTERASE URINE TRACE (NEGATIVE); NITRITE URINE NEGATIVE (NEGATIVE); OCCULT BLOOD URINE TRACE (NEGATIVE); PH URINE 5.5 (4.5-8.0); PROTEIN URINE 4+ (NEGATIVE); SPECIFIC GRAVITY URINE 1.018 (1.005-1.030); UROBILINOGEN URINE 0.2 E.U./dL (0.2-1.0)
[2019-02-11] MEDS: LACTULOSE 20G/30ML UDC PO SCH ×3 (05:44→22:00)
[2019-02-11] MEDS: LEVOTHYROXINE SODIUM 75MCG TABLET PO SCH (05:45)
[2019-02-11] MEDS: BLOOD SUGAR DIAGNOSTIC STRIP TEST SCH ×4 (05:45→21:00)
[2019-02-11] MEDS: INSULIN LISPRO 100 UNITS/ML SUBCUT SCH ×4 (05:45→21:00)
[2019-02-11 08:00] VITALS: BP 176/88
[2019-02-11] MEDS: LOSARTAN POTASSIUM 50 MG TABLET PO SCH (08:52)
[2019-02-11] MEDS: MIDODRINE HCL 5MG TABLET PO SCH ×4 (08:53→21:00)
[2019-02-11] MEDS: PAROXETINE HCL 10MG TABLET PO SCH (08:53)
[2019-02-11] MEDS: SEVELAMER CARBONATE 800 MG TABLET PO SCH ×3 (08:54→17:00)
[2019-02-11] MEDS: ASPIRIN 81MG EC TABLET PO SCH (08:54)
[2019-02-11] MEDS: DOCUSATE SODIUM 100MG CAPSULE PO PRN (08:54)
[2019-02-11] MEDS: FOLIC ACID 1MG TABLET PO SCH (08:54)
[2019-02-11] MEDS: ONDANSETRON 4MG ODT PO PRN (11:38)
[2019-02-11 20:00] VITALS: BP 140/56
[2019-02-11] MEDS: ENOXAPARIN 40MG/0.4ML SYR SUBCUT SCH (21:00)
[2019-02-11] MEDS: AMLODIPINE 5MG TABLET PO SCH (21:00)
[2019-02-11] MEDS: ATORVASTATIN CALCIUM 20MG TABLET PO SCH (23:39)
[2019-02-11] MEDS: EPOETIN ALFA 4000UNITS/ML VIAL SUBCUT SCH (23:40)
[2019-02-11] MEDS: LATANOPROST 0.005% OPHTH DROPS 2.5ML EACHEYE SCH (23:40)
[2019-02-12 02:42] VITALS: BP 142/67
[2019-02-12] MEDS: LACTULOSE 20G/30ML UDC PO SCH ×3 (06:00→21:37)
[2019-02-12] MEDS: LEVOTHYROXINE SODIUM 75MCG TABLET PO SCH (06:26)
[2019-02-12] MEDS: INSULIN LISPRO 100 UNITS/ML SUBCUT SCH ×4 (06:29→21:10)
[2019-02-12] MEDS: BLOOD SUGAR DIAGNOSTIC STRIP TEST SCH ×4 (06:29→20:49)
[2019-02-12 08:04] VITALS: BP 126/68
[2019-02-12] MEDS: FOLIC ACID 1MG TABLET PO SCH (08:30)
[2019-02-12] MEDS: ASPIRIN 81MG EC TABLET PO SCH (08:30)
[2019-02-12] MEDS: SEVELAMER CARBONATE 800 MG TABLET PO SCH ×4 (08:30→17:30)
[2019-02-12] MEDS: PAROXETINE HCL 10MG TABLET PO SCH (08:32)
[2019-02-12] MEDS: LOSARTAN POTASSIUM 50 MG TABLET PO SCH (08:32)
[2019-02-12] MEDS: MIDODRINE HCL 5MG TABLET PO SCH ×4 (08:32→21:37)
[2019-02-12 08:38] LABS: BASOPHILS % 0.8 % (0.0-2.0); EOSINOPHILS % 6.2 % (0.0-5.0); HEMATOCRIT. 32.6 % (36.0-48.0); HEMOGLOBIN. 10.2 g/dL (12.0-16.0); LYMPHOCYTES % 25.4 % (20.0-50.0); MEAN CORPUSCULAR HEMOGLOBIN 28.8 pg (28.0-32.0); MEAN CORPUSCULAR VOLUME 92.4 fL (81.0-99.0); MEAN PLATELET VOLUME 8.9 fl (7.4-10.4); MONOCYTES % 9.1 % (2.0-8.0); NEUTROPHILS % 58.5 % (40.0-76.0); PLATELET 167 x1000/uL (130-400); RED BLOOD CELL COUNT 3.52 mill/uL (4.2-5.4); RED CELL DISTRIBUTION WIDTH 14.2 % (11.6-14.6)
[2019-02-12] MEDS ORDERED: ZOLPIDEM TARTRATE 5MG TABLET PO PRN (10:30)
[2019-02-12 11:30] VITALS: BP 138/63
[2019-02-12 20:00] VITALS: BP 119/53
[2019-02-12] MEDS: ATORVASTATIN CALCIUM 20MG TABLET PO SCH (20:42)
[2019-02-12] MEDS: LATANOPROST 0.005% OPHTH DROPS 2.5ML EACHEYE SCH (20:42)
[2019-02-12] MEDS: AMLODIPINE 5MG TABLET PO SCH (20:42)
[2019-02-12] MEDS: ENOXAPARIN 40MG/0.4ML SYR SUBCUT SCH (20:43)
[2019-02-12 23:48] VITALS: BP 157/55
[2019-02-13] MEDS: BLOOD SUGAR DIAGNOSTIC STRIP TEST SCH ×4 (06:15→21:30)
[2019-02-13] MEDS: LACTULOSE 20G/30ML UDC PO SCH (06:15)
[2019-02-13] MEDS: LEVOTHYROXINE SODIUM 75MCG TABLET PO SCH (06:15)
[2019-02-13] MEDS: INSULIN LISPRO 100 UNITS/ML SUBCUT SCH ×4 (06:29→21:57)
[2019-02-13 08:00] VITALS: BP 168/71
[2019-02-13] MEDS: PAROXETINE HCL 10MG TABLET PO SCH (09:00)
[2019-02-13] MEDS: SEVELAMER CARBONATE 800 MG TABLET PO SCH ×3 (09:11→17:27)
[2019-02-13] MEDS: FOLIC ACID 1MG TABLET PO SCH (09:11)
[2019-02-13] MEDS: LOSARTAN POTASSIUM 50 MG TABLET PO SCH (09:12)
[2019-02-13] MEDS: ASPIRIN 81MG EC TABLET PO SCH (09:12)
[2019-02-13 09:19] LABS: BASOPHILS % 0.9 % (0.0-2.0); EOSINOPHILS % 7.3 % (0.0-5.0); HEMATOCRIT. 29.4 % (36.0-48.0); HEMOGLOBIN. 9.5 g/dL (12.0-16.0); LYMPHOCYTES % 21.2 % (20.0-50.0); MEAN CORPUSCULAR VOLUME 89.3 fL (81.0-99.0); MEAN PLATELET VOLUME 8.1 fl (7.4-10.4); MONOCYTES % 8.8 % (2.0-8.0); NEUTROPHILS % 61.8 % (40.0-76.0); PLATELET 246 x1000/uL (130-400); RED BLOOD CELL COUNT 3.29 mill/uL (4.2-5.4)
[2019-02-13] MEDS: RIFAXIMIN 550 MG TABLET PO SCH (09:27)
[2019-02-13 09:30] VITALS: BP_SYST 107; BP_SYST 122; BP_DIAS 56; BP_DIAS 59
[2019-02-13] MEDS ORDERED: NA PHOS,M-B/NA PHOS,DI-BA ENEMA 118ML PR PRN (09:30)
[2019-02-13] MEDS: MIDODRINE HCL 5MG TABLET PO SCH ×4 (09:41→21:00)
[2019-02-13 13:30] VITALS: BP_SYST 104; BP_SYST 172; BP_SYST 183; BP_DIAS 42; BP_DIAS 63; BP_DIAS 68
[2019-02-13] MEDS: METOCLOPRAMIDE HCL 10MG/2ML VIAL IV PRN (15:58)
[2019-02-13 20:00] VITALS: BP 134/57
[2019-02-13] MEDS: AMLODIPINE 5MG TABLET PO SCH (21:00)
[2019-02-13] MEDS: ENOXAPARIN 40MG/0.4ML SYR SUBCUT SCH (21:00)
[2019-02-13] MEDS: LATANOPROST 0.005% OPHTH DROPS 2.5ML EACHEYE SCH (21:50)
[2019-02-13] MEDS: ATORVASTATIN CALCIUM 20MG TABLET PO SCH (21:51)
[2019-02-14] MEDS: BLOOD SUGAR DIAGNOSTIC STRIP TEST SCH ×4 (06:15→21:00)
[2019-02-14] MEDS: INSULIN LISPRO 100 UNITS/ML SUBCUT SCH ×4 (06:16→21:00)
[2019-02-14] MEDS: LEVOTHYROXINE SODIUM 75MCG TABLET PO SCH (06:16)
[2019-02-14 08:00] VITALS: BP 160/72
[2019-02-14] MEDS: FOLIC ACID 1MG TABLET PO SCH (08:46)
[2019-02-14] MEDS: SEVELAMER CARBONATE 800 MG TABLET PO SCH ×3 (08:46→17:00)
[2019-02-14] MEDS: ASPIRIN 81MG EC TABLET PO SCH (08:46)
[2019-02-14] MEDS: PAROXETINE HCL 10MG TABLET PO SCH (08:48)
[2019-02-14] MEDS: LOSARTAN POTASSIUM 50 MG TABLET PO SCH (08:48)
[2019-02-14] MEDS: MIDODRINE HCL 5MG TABLET PO SCH ×4 (08:50→21:00)
[2019-02-14] MEDS: RIFAXIMIN 550 MG TABLET PO SCH (08:50)
[2019-02-14 11:53] LABS: BASOPHILS % 0.8 % (0.0-2.0); EOSINOPHILS % 7.2 % (0.0-5.0); HEMOGLOBIN. 9.9 g/dL (12.0-16.0); LYMPHOCYTES % 18.7 % (20.0-50.0); MEAN CORPUSCULAR HEMOGLOBIN 29.6 pg (28.0-32.0); MEAN CORPUSCULAR VOLUME 89.5 fL (81.0-99.0); MEAN PLATELET VOLUME 8.2 fl (7.4-10.4); MONOCYTES % 7.2 % (2.0-8.0); NEUTROPHILS % 66.1 % (40.0-76.0); PLATELET 254 x1000/uL (130-400); RED BLOOD CELL COUNT 3.36 mill/uL (4.2-5.4); RED CELL DISTRIBUTION WIDTH 14.1 % (11.6-14.6)
[2019-02-14 12:02] LABS: CHLORIDE 106 mEq/L (98-107)
[2019-02-14] MEDS: LIDOCAINE HCL 4% CREAM 76GM TUBE TP PRN (14:19)
[2019-02-14] MEDS ORDERED: HEPARIN SODIUM 1,000 UNIT/1ML VIAL IV NR (16:30)
[2019-02-14] MEDS ORDERED: METOCLOPRAMIDE HCL 5MG TABLET PO SCH (18:00)
[2019-02-14] MEDS: EPOETIN ALFA 4000UNITS/ML VIAL SUBCUT SCH (21:00)
[2019-02-14] MEDS: AMLODIPINE 5MG TABLET PO SCH (21:00)
[2019-02-14] MEDS: ENOXAPARIN 40MG/0.4ML SYR SUBCUT SCH (21:00)
[2019-02-14 21:25] VITALS: BP 184/76
[2019-02-14 22:00] VITALS: BP 129/68
[2019-02-14] MEDS: ATORVASTATIN CALCIUM 20MG TABLET PO SCH (22:32)
[2019-02-14] MEDS: LATANOPROST 0.005% OPHTH DROPS 2.5ML EACHEYE SCH (22:33)
[2019-02-15] MEDS: BLOOD SUGAR DIAGNOSTIC STRIP TEST SCH ×4 (06:17→20:42)
[2019-02-15] MEDS: LEVOTHYROXINE SODIUM 75MCG TABLET PO SCH (06:18)
[2019-02-15] MEDS: INSULIN LISPRO 100 UNITS/ML SUBCUT SCH ×4 (06:29→21:01)
[2019-02-15 07:36] VITALS: BP 123/80
[2019-02-15] MEDS: SEVELAMER CARBONATE 800 MG TABLET PO SCH ×3 (08:38→16:33)
[2019-02-15] MEDS: ASPIRIN 81MG EC TABLET PO SCH (08:38)
[2019-02-15] MEDS: FOLIC ACID 1MG TABLET PO SCH (08:38)
[2019-02-15] MEDS: LOSARTAN POTASSIUM 50 MG TABLET PO SCH ×2 (08:40→15:31)
[2019-02-15] MEDS: PAROXETINE HCL 10MG TABLET PO SCH (08:40)
[2019-02-15] MEDS: MIDODRINE HCL 5MG TABLET PO SCH ×4 (08:41→20:38)
[2019-02-15] MEDS: RIFAXIMIN 550 MG TABLET PO SCH (08:42)
[2019-02-15] MEDS: AMLODIPINE 5MG TABLET PO SCH (14:06)
[2019-02-15] MEDS ORDERED: POLYETHYLENE GLYCOL 3350 (17GM) 1 DOSE PACK PO SCH (14:15)
[2019-02-15] MEDS: MECLIZINE 12.5MG TABLET PO SCH ×3 (14:45→21:05)
[2019-02-15] MEDS: MAGNESIUM CITRATE 300ML SOLUTION PO PRN (18:37)
[2019-02-15 20:00] VITALS: BP_SYST 121; BP_SYST 127; BP_SYST 176; BP_DIAS 52; BP_DIAS 55; BP_DIAS 68
[2019-02-15] MEDS: LATANOPROST 0.005% OPHTH DROPS 2.5ML EACHEYE SCH (20:37)
[2019-02-15] MEDS: ATORVASTATIN CALCIUM 20MG TABLET PO SCH (20:37)
[2019-02-15] MEDS: ENOXAPARIN 40MG/0.4ML SYR SUBCUT SCH (20:38)
[2019-02-16] MEDS: MECLIZINE 12.5MG TABLET PO SCH ×2 (06:00→14:00)
[2019-02-16] MEDS: LEVOTHYROXINE SODIUM 75MCG TABLET PO SCH (06:08)
[2019-02-16] MEDS: BLOOD SUGAR DIAGNOSTIC STRIP TEST SCH ×4 (06:11→21:00)
[2019-02-16] MEDS: INSULIN LISPRO 100 UNITS/ML SUBCUT SCH ×4 (06:11→21:00)
[2019-02-16 07:52] VITALS: BP 180/64
[2019-02-16] MEDS: SEVELAMER CARBONATE 800 MG TABLET PO SCH ×3 (09:00→16:19)
[2019-02-16] MEDS: MIDODRINE HCL 5MG TABLET PO SCH ×4 (09:00→21:00)
[2019-02-16] MEDS: ASPIRIN 81MG EC TABLET PO SCH (09:00)
[2019-02-16] MEDS: FOLIC ACID 1MG TABLET PO SCH (09:00)
[2019-02-16 09:20] VITALS: BP 147/54
[2019-02-16] MEDS: LOSARTAN POTASSIUM 50 MG TABLET PO SCH ×2 (16:00→21:00)
[2019-02-16] MEDS: DOCUSATE SODIUM 100MG CAPSULE PO PRN (16:19)
[2019-02-16] MEDS: DOCUSATE SODIUM 250MG CAPSULE PO SCH (16:19)
[2019-02-16] MEDS ORDERED: MECLIZINE 25MG TABLET PO PRN (16:30)
[2019-02-16 17:26] LABS: BASOPHILS % 0.8 % (0.0-2.0); EOSINOPHILS % 7.3 % (0.0-5.0); HEMATOCRIT. 28.9 % (36.0-48.0); HEMOGLOBIN. 9.3 g/dL (12.0-16.0); LYMPHOCYTES % 24.6 % (20.0-50.0); MEAN CORPUSCULAR HEMOGLOBIN 29.2 pg (28.0-32.0); MEAN CORPUSCULAR VOLUME 91.1 fL (81.0-99.0); MEAN PLATELET VOLUME 8.1 fl (7.4-10.4); MONOCYTES % 10.6 % (2.0-8.0); NEUTROPHILS % 56.7 % (40.0-76.0); PLATELET 230 x1000/uL (130-400); RED BLOOD CELL COUNT 3.17 mill/uL (4.2-5.4); RED CELL DISTRIBUTION WIDTH 14.1 % (11.6-14.6)
[2019-02-16] MEDS: LIDOCAINE HCL 4% CREAM 76GM TUBE TP PRN (17:30)
[2019-02-16 20:00] VITALS: BP 177/84
[2019-02-16] MEDS: AMLODIPINE 5MG TABLET PO SCH (21:00)
[2019-02-16] MEDS: ENOXAPARIN 40MG/0.4ML SYR SUBCUT SCH (21:00)
[2019-02-16] MEDS: EPOETIN ALFA 4000UNITS/ML VIAL SUBCUT SCH (21:00)
[2019-02-16] MEDS: LATANOPROST 0.005% OPHTH DROPS 2.5ML EACHEYE SCH (22:58)
[2019-02-16 23:00] VITALS: BP 129/60
[2019-02-16] MEDS: ATORVASTATIN CALCIUM 20MG TABLET PO SCH (23:03)
[2019-02-17 04:07] LABS: 25-HYDROXY VITAMIN D3 6.9 ng/mL (.)
[2019-02-17] MEDS: BLOOD SUGAR DIAGNOSTIC STRIP TEST SCH ×4 (06:15→21:00)
[2019-02-17] MEDS: LEVOTHYROXINE SODIUM 75MCG TABLET PO SCH (06:16)
[2019-02-17] MEDS: INSULIN LISPRO 100 UNITS/ML SUBCUT SCH ×4 (06:42→21:00)
[2019-02-17 08:00] VITALS: BP 188/77
[2019-02-17] MEDS: ASPIRIN 81MG EC TABLET PO SCH (08:45)
[2019-02-17] MEDS: SEVELAMER CARBONATE 800 MG TABLET PO SCH ×3 (08:45→16:42)
[2019-02-17] MEDS: FOLIC ACID 1MG TABLET PO SCH (08:45)
[2019-02-17] MEDS: DOCUSATE SODIUM 100MG CAPSULE PO PRN (08:46)
[2019-02-17] MEDS: LOSARTAN POTASSIUM 50 MG TABLET PO SCH ×3 (09:00→21:58)
[2019-02-17] MEDS: DOCUSATE SODIUM 250MG CAPSULE PO SCH ×2 (09:00→16:42)
[2019-02-17] MEDS: MIDODRINE HCL 5MG TABLET PO SCH ×4 (09:00→21:00)
[2019-02-17] MEDS: ONDANSETRON 4MG ODT PO PRN (11:31)
[2019-02-17] MEDS: MAGNESIUM CITRATE 300ML SOLUTION PO PRN (11:37)
[2019-02-17] MEDS: AMLODIPINE 5MG TABLET PO SCH ×2 (14:15→21:00)
[2019-02-17] MEDS ORDERED: ERGOCALCIFEROL 50000UNITS CAPSULE PO SCH (17:00)
[2019-02-17] MEDS: METOCLOPRAMIDE HCL 5MG TABLET PO SCH (17:21)
[2019-02-17 20:00] VITALS: BP 172/68
[2019-02-17] MEDS: ENOXAPARIN 40MG/0.4ML SYR SUBCUT SCH (21:00)
[2019-02-17] MEDS: ATORVASTATIN CALCIUM 20MG TABLET PO SCH (21:58)
[2019-02-17] MEDS: LATANOPROST 0.005% OPHTH DROPS 2.5ML EACHEYE SCH (22:00)
[2019-02-18] MEDS: METOCLOPRAMIDE HCL 5MG TABLET PO SCH ×4 (06:00→17:10)
[2019-02-18] MEDS: LEVOTHYROXINE SODIUM 75MCG TABLET PO SCH (06:24)
[2019-02-18] MEDS: BLOOD SUGAR DIAGNOSTIC STRIP TEST SCH ×4 (06:41→21:00)
[2019-02-18 08:00] VITALS: BP 134/57
[2019-02-18] MEDS ORDERED: NA PHOS,M-B/NA PHOS,DI-BA ENEMA 118ML PR SCH (08:15)
[2019-02-18] MEDS: FOLIC ACID 1MG TABLET PO SCH (08:57)
[2019-02-18] MEDS: SEVELAMER CARBONATE 800 MG TABLET PO SCH ×3 (08:57→17:02)
[2019-02-18] MEDS: DOCUSATE SODIUM 100MG CAPSULE PO PRN (08:57)
[2019-02-18] MEDS: ASPIRIN 81MG EC TABLET PO SCH (08:57)
[2019-02-18] MEDS: AMLODIPINE 5MG TABLET PO SCH ×2 (09:00→21:00)
[2019-02-18] MEDS: LOSARTAN POTASSIUM 50 MG TABLET PO SCH ×2 (09:00→21:00)
[2019-02-18] MEDS: DOCUSATE SODIUM 250MG CAPSULE PO SCH ×2 (09:00→17:03)
[2019-02-18] MEDS: INSULIN LISPRO 100 UNITS/ML SUBCUT SCH ×4 (09:00→22:06)
[2019-02-18] MEDS: MIDODRINE HCL 5MG TABLET PO SCH ×4 (09:00→21:00)
[2019-02-18] MEDS: LACTULOSE 20G/30ML UDC PO SCH ×3 (09:02→17:00)
[2019-02-18 11:42] LABS: EOSINOPHILS % 7.1 % (0.0-5.0); HEMATOCRIT. 28.4 % (36.0-48.0); LYMPHOCYTES % 21.5 % (20.0-50.0); MEAN CORPUSCULAR VOLUME 91.4 fL (81.0-99.0); MEAN PLATELET VOLUME 7.9 fl (7.4-10.4); MONOCYTES % 6.7 % (2.0-8.0); NEUTROPHILS % 63.7 % (40.0-76.0); PLATELET 251 x1000/uL (130-400); RED BLOOD CELL COUNT 3.11 mill/uL (4.2-5.4); RED CELL DISTRIBUTION WIDTH 14.4 % (11.6-14.6)
[2019-02-18] MEDS: LIDOCAINE HCL 4% CREAM 76GM TUBE TP PRN ×2 (17:35→22:06)
[2019-02-18 20:00] VITALS: BP 159/61
[2019-02-18] MEDS: ENOXAPARIN 40MG/0.4ML SYR SUBCUT SCH (21:00)
[2019-02-18] MEDS: ATORVASTATIN CALCIUM 20MG TABLET PO SCH (21:53)
[2019-02-18] MEDS: LATANOPROST 0.005% OPHTH DROPS 2.5ML EACHEYE SCH (21:54)
[2019-02-19] MEDS ORDERED: HEPARIN SODIUM 1,000 UNIT/1ML VIAL IV NR (00:15)
[2019-02-19] MEDS: EPOETIN ALFA 4000UNITS/ML VIAL SUBCUT SCH (05:49)
[2019-02-19] MEDS: BLOOD SUGAR DIAGNOSTIC STRIP TEST SCH ×2 (05:49→11:36)
[2019-02-19] MEDS: METOCLOPRAMIDE HCL 5MG TABLET PO SCH ×4 (05:49→11:36)
[2019-02-19] MEDS: INSULIN LISPRO 100 UNITS/ML SUBCUT SCH ×2 (05:50→12:40)
[2019-02-19] MEDS: LEVOTHYROXINE SODIUM 75MCG TABLET PO SCH (06:29)
[2019-02-19 08:13] VITALS: BP 150/57
[2019-02-19] MEDS: AMLODIPINE 5MG TABLET PO SCH (09:00)
[2019-02-19] MEDS: LOSARTAN POTASSIUM 50 MG TABLET PO SCH (09:00)
[2019-02-19] MEDS: MIDODRINE HCL 5MG TABLET PO SCH ×2 (09:00→13:00)
[2019-02-19] MEDS: FOLIC ACID 1MG TABLET PO SCH (09:23)
[2019-02-19] MEDS: SEVELAMER CARBONATE 800 MG TABLET PO SCH ×2 (09:23→12:40)
[2019-02-19] MEDS: DOCUSATE SODIUM 250MG CAPSULE PO SCH (09:23)
[2019-02-19] MEDS: ASPIRIN 81MG EC TABLET PO SCH (09:24)
[2019-02-19 11:40] VITALS: BP 150/57
== END 2019-02-19 13:30 | disposition home health service (06) | DRG 73 ==
PROVIDERS: ADMIT Physical Medicine & Rehabilitation Spinal Cord Injury Medicine; ATTEND Internal Medicine
PROC: 5A1D70Z Performance of Urinary Filtration, Intermittent, Less than 6 Hours Per Day (ICD-10-PCS; principal; 2019-02-07)
PROC: 5A1D70Z Performance of Urinary Filtration, Intermittent, Less than 6 Hours Per Day (ICD-10-PCS; 2019-02-09)
PROC: 5A1D70Z Performance of Urinary Filtration, Intermittent, Less than 6 Hours Per Day (ICD-10-PCS; 2019-02-11)
PROC: 5A1D70Z Performance of Urinary Filtration, Intermittent, Less than 6 Hours Per Day (ICD-10-PCS; 2019-02-14)
PROC: 5A1D70Z Performance of Urinary Filtration, Intermittent, Less than 6 Hours Per Day (ICD-10-PCS; 2019-02-16)
DX: E11.42 Type 2 diabetes mellitus with diabetic polyneuropathy (principal); N18.6 End stage renal disease; I50.32 Chronic diastolic (congestive) heart failure; I13.2 Hypertensive heart and chronic kidney disease with heart failure and with stage 5 chronic kidney disease, or end stage renal disease; J98.11 Atelectasis; R42 Dizziness and giddiness; R53.81 Other malaise; R26.9 Unspecified abnormalities of gait and mobility; K31.84 Gastroparesis; E11.319 Type 2 diabetes mellitus with unspecified diabetic retinopathy without macular edema; E11.43 Type 2 diabetes mellitus with diabetic autonomic (poly)neuropathy; F41.8 Other specified anxiety disorders; E78.5 Hyperlipidemia, unspecified; I16.0 Hypertensive urgency; D63.1 Anemia in chronic kidney disease; E03.9 Hypothyroidism, unspecified; E11.22 Type 2 diabetes mellitus with diabetic chronic kidney disease; E55.9 Vitamin D deficiency, unspecified; E66.01 Morbid (severe) obesity due to excess calories; E78.00 Pure hypercholesterolemia, unspecified; G90.1 Familial dysautonomia [Riley-Day]; I25.10 Atherosclerotic heart disease of native coronary artery without angina pectoris; I95.1 Orthostatic hypotension; G90.8 Other disorders of autonomic nervous system; F06.31 Mood disorder due to known physiological condition with depressive features; Z99.2 Dependence on renal dialysis; I25.2 Old myocardial infarction; Z86.73 Personal history of transient ischemic attack (TIA), and cerebral infarction without residual deficits; Z91.19 Patient's noncompliance with other medical treatment and regimen
CPT/HCPCS: 36415; 74018; 80048; 81003; 82140; 82306; 82607; 82728; 82746; 82962; 83540; 83550; 83735; 84100; 84134; 84443; 92523; 92610; 93970; 97110; 97112; 97116; 97162; 97166; 97530; 97535; G0515; J0885; J1644; J1650; J1815; J2765; J8597; Q0162

== ENCOUNTER 2019-03-04 19:42 | Emergency (ER) | payer MEDICARE, MEDICAID ==
[~2019-03-04] VITALS: Ht 165.1 cm; Wt 128.0 kg
[2019-03-04 21:30] VITALS: BP 125/66
[2019-03-04 21:32] LABS: BASOPHILS % 0.5 % (0.0-2.0); EOSINOPHILS % 4.2 % (0.0-5.0); HEMATOCRIT. 32.6 % (36.0-48.0); HEMOGLOBIN. 10.9 g/dL (12.0-16.0); LYMPHOCYTES % 18.2 % (20.0-50.0); MEAN CORPUSCULAR HEMOGLOBIN 29.9 pg (28.0-32.0); MEAN CORPUSCULAR VOLUME 89.6 fL (81.0-99.0); MONOCYTES % 8.6 % (2.0-8.0); NEUTROPHILS % 68.5 % (40.0-76.0); PLATELET 306 x1000/uL (130-400); RED BLOOD CELL COUNT 3.64 mill/uL (4.2-5.4); RED CELL DISTRIBUTION WIDTH 14.3 % (11.6-14.6)
[2019-03-04 21:34] LABS: CHLORIDE 104 mEq/L (98-107)
== END 2019-03-04 22:47 | disposition home or self-care (01) ==
LOC: ER 19:42
DX: I10 Essential (primary) hypertension (principal); N18.9 Chronic kidney disease, unspecified; E11.9 Type 2 diabetes mellitus without complications; I50.9 Heart failure, unspecified; Z88.3 Allergy status to other anti-infective agents
CPT/HCPCS: 36415; 93005; 99284

== ENCOUNTER 2020-04-30 14:04 | Emergency (ER) | payer MEDICARE, MEDICAID ==
[~2020-04-30] VITALS: Ht 177.8 cm; Wt 80.0 kg
[2020-04-30] MEDS ORDERED: ONDANSETRON HCL 4MG/2ML INJ IV STA (14:13)
[2020-04-30 15:10] LABS: BASOPHILS % 0.5 % (0.0-2.0); EOSINOPHILS % 1.7 % (0.0-5.0); HEMATOCRIT. 33.5 % (36.0-48.0); LYMPHOCYTES % 20.8 % (20.0-50.0); MEAN CORPUSCULAR VOLUME 91.8 fL (81.0-99.0); MEAN PLATELET VOLUME 7.2 fl (7.4-10.4); MONOCYTES % 5.9 % (2.0-8.0); NEUTROPHILS % 71.1 % (40.0-76.0); PLATELET 306 x1000/uL (130-400); RED BLOOD CELL COUNT 3.65 mill/uL (4.2-5.4); RED CELL DISTRIBUTION WIDTH 14.9 % (11.6-14.6)
[2020-04-30 15:18] LABS: CHLORIDE 95 mEq/L (98-107)
[2020-04-30 22:00] VITALS: BP 139/71
== END 2020-04-30 22:00 | disposition home or self-care (01) ==
LOC: ER 14:04
DX: R74.01 Elevation of levels of liver transaminase levels (principal); E11.65 Type 2 diabetes mellitus with hyperglycemia; I13.2 Hypertensive heart and chronic kidney disease with heart failure and with stage 5 chronic kidney disease, or end stage renal disease; E11.22 Type 2 diabetes mellitus with diabetic chronic kidney disease; N18.6 End stage renal disease; I50.9 Heart failure, unspecified; Z99.2 Dependence on renal dialysis; Z88.8 Allergy status to other drugs, medicaments and biological substances; Z98.890 Other specified postprocedural states; Z87.891 Personal history of nicotine dependence
CPT/HCPCS: 36415; 71045; 76705; 80053; 84484; 85025; 93005; 99285

== ENCOUNTER 2021-04-27 16:35 | Emergency (ER) | payer MEDICARE, MEDICAID ==
[~2021-04-27] VITALS: Ht 167.6 cm; Wt 127.0 kg
[~2021-04-27 16:35] MED LIST changes: +AMLO5TAB88 PO; -ASPI-1393 PO; +ASPI-1497 MT; +ATOR10TA69 PO; -ATOR20TA65 PO; -CALC667C PO; +DOCU250C14 GT; -FOLI-43 PO; +FOLI0.8T23 MT; +HYDR-4134 MT; -INSU100I24 SQ; -LACT10SO6 PO; -LATA2.5D2 EACHEYE; -ONDA4TAB11 PO; +SEVE800T8 MT
[2021-04-27] MEDS ORDERED: ACETAMINOPHEN 325MG TABLET PO STA (16:50)
[2021-04-27] MEDS ORDERED: SODIUM CHLORIDE 0.9% 250 ML IV ONE (17:00)
[2021-04-27] MEDS ORDERED: ONDANSETRON HCL 4MG/2ML INJ IV ONE (17:15)
[2021-04-27 17:47] LABS: HEMATOCRIT. 34.9 % (36.0-48.0); MEAN CORPUSCULAR HEMOGLOBIN 29.1 pg (28.0-32.0); MEAN CORPUSCULAR VOLUME 92.7 fL (81.0-99.0); MEAN PLATELET VOLUME 7.4 fl (7.4-10.4); PLATELET 282 x1000/uL (130-400); RED BLOOD CELL COUNT 3.77 mill/uL (4.2-5.4); RED CELL DISTRIBUTION WIDTH 14.3 % (11.6-14.6)
[2021-04-27 17:59] LABS: CHLORIDE 99 mEq/L (98-107)
[2021-04-27 18:04] LABS: ETHANOL BLOOD < 10 mg/dL
[2021-04-27 18:05] LABS: C REACTIVE PROTEIN QUANT 4.7 mg/L (0.0-3.0)
[2021-04-27] MEDS ORDERED: FAMO-135 MT (19:52)
[2021-04-27] MEDS ORDERED: ONDA4TAB5 MT (19:52)
[2021-04-27 19:54] LABS: PLATELET ESTIMATE NORMAL
[2021-04-27 20:03] VITALS: BP 110/61
== END 2021-04-27 20:45 | disposition home or self-care (01) ==
LOC: ER 16:35 → CANBEDREQ 22:48
DX: I13.2 Hypertensive heart and chronic kidney disease with heart failure and with stage 5 chronic kidney disease, or end stage renal disease (principal); E11.22 Type 2 diabetes mellitus with diabetic chronic kidney disease; N18.6 End stage renal disease; I50.9 Heart failure, unspecified; F41.9 Anxiety disorder, unspecified; R60.0 Localized edema; Z99.2 Dependence on renal dialysis; Z88.8 Allergy status to other drugs, medicaments and biological substances; Z79.899 Other long term (current) drug therapy; Z98.890 Other specified postprocedural states; Z86.73 Personal history of transient ischemic attack (TIA), and cerebral infarction without residual deficits; Z20.822 Contact with and (suspected) exposure to COVID-19
CPT/HCPCS: 36415; 71045; 80053; 80320; 83605; 83880; 84145; 84484; 85025; 86140; 86850; 86900; 86901; 87040; 87426; 93005; 96361; 96374; 99285; J2405; J7050; G0480

== ENCOUNTER 2022-04-27 16:23 | Inpatient (IN) | payer MEDICARE, MEDICAID ==
[~2022-04-27] VITALS: Ht 165.1 cm; Wt 147.2 kg
[~2022-04-27 16:23] MED LIST changes: +FAMO-135 MT; +ONDA4TAB5 MT
[2022-04-27 19:59] LABS: HEMATOCRIT. 33.2 % (36.0-48.0); HEMOGLOBIN. 10.7 g/dL (12.0-16.0); MEAN CORPUSCULAR HEMOGLOBIN 30.5 pg (28.0-32.0); MEAN CORPUSCULAR VOLUME 94.5 fL (81.0-99.0); MEAN PLATELET VOLUME 7.1 fl (7.4-10.4); PLATELET 334 x1000/uL (130-400); RED BLOOD CELL COUNT 3.51 mill/uL (4.2-5.4); RED CELL DISTRIBUTION WIDTH 14.3 % (11.6-14.6)
[2022-04-27 20:07] LABS: CHLORIDE 108 mEq/L (98-107)
[2022-04-27] MEDS ORDERED: DEXTROSE 50% WATER 50ML SYRINGE IV ONE (20:15)
[2022-04-27] MEDS ORDERED: FUROSEMIDE 100MG/10ML VIAL IV STA (20:15)
[2022-04-27] MEDS ORDERED: ALBUTEROL (0.083%) 2.5MG/3ML NEB HHN ONE (20:15)
[2022-04-27] MEDS ORDERED: INSULIN REGULAR (HUMULIN R) 300UNITS/3ML VIAL IV ONE (20:15)
[2022-04-27] MEDS ORDERED: SODIUM BICARBONATE 8.4% 1 MEQ/ML 50ML SYR IV ONE (20:15)
[2022-04-27] MEDS ORDERED: METOCLOPRAMIDE HCL 10MG/2ML VIAL IV ONE (20:30)
[2022-04-27] MEDS ORDERED: AMLODIPINE 10MG TABLET PO ONE (20:30)
[2022-04-27] MEDS ORDERED: CALCIUM GLUCONATE 100MG/ML 10ML VIAL IV ONE ×3 (20:30→22:00)
[2022-04-27] MEDS ORDERED: CARVEDILOL 12.5MG TABLET PO ONE (20:30)
[2022-04-27 21:04] LABS: PLATELET ESTIMATE NORMAL
[2022-04-27] MEDS ORDERED: DEXTROSE 50% WATER 50ML SYRINGE IV NR (21:30)
[2022-04-27 22:04] LABS: HEPATITIS B SURFACE ANTIGEN NEGATIVE
[2022-04-27] MEDS ORDERED: INSULIN REGULAR (HUMULIN R) 300UNITS/3ML VIAL IV NR (22:15)
[2022-04-28] VITALS (11 sets, daily range): BP systolic 102–184; BP diastolic 52–85
[2022-04-28] MEDS ORDERED: DEXTROSE 50% WATER 50ML SYRINGE IV PRN (08:30)
[2022-04-28] MEDS ORDERED: ONDANSETRON HCL 4MG/2ML INJ IV PRN (08:30)
[2022-04-28] MEDS ORDERED: ACETAMINOPHEN 325MG TABLET PO PRN (08:30)
[2022-04-28] MEDS: AMLODIPINE 10MG TABLET PO SCH (09:00)
[2022-04-28] MEDS: INSULIN LISPRO 100 UNITS/ML SUBCUT SCH ×3 (12:00→22:36)
[2022-04-28] MEDS: BLOOD SUGAR DIAGNOSTIC STRIP TEST SCH ×3 (12:28→22:27)
[2022-04-29] VITALS (15 sets, daily range): BP systolic 123–189; BP diastolic 44–81
[2022-04-29] MEDS: BLOOD SUGAR DIAGNOSTIC STRIP TEST SCH ×4 (06:28→21:15)
[2022-04-29] MEDS: INSULIN LISPRO 100 UNITS/ML SUBCUT SCH ×4 (06:51→21:00)
[2022-04-29 06:57] LABS: HEMATOCRIT. 31.9 % (36.0-48.0); HEMOGLOBIN. 10.3 g/dL (12.0-16.0); MEAN CORPUSCULAR HEMOGLOBIN 30.2 pg (28.0-32.0); MEAN CORPUSCULAR VOLUME 93.8 fL (81.0-99.0); MEAN PLATELET VOLUME 7.5 fl (7.4-10.4); PLATELET 293 x1000/uL (130-400); RED CELL DISTRIBUTION WIDTH 14.6 % (11.6-14.6)
[2022-04-29] MEDS: AMLODIPINE 10MG TABLET PO SCH (08:45)
[2022-04-29 10:31] LABS: PLATELET ESTIMATE NORMAL
[2022-04-29] MEDS: GUAIFENESIN-DM 200MG-20MG/10ML UDC PO PRN ×2 (17:17→21:32)
[2022-04-29] MEDS ORDERED: CLONIDINE 0.1MG TABLET PO PRN (20:45)
[2022-04-29] MEDS ORDERED: INFLUENZA VACCINE 05/PF 0.5 ML SYRINGE IM ONE (21:00)
[2022-04-29] MEDS ORDERED: PNEUMOCOCCAL 23-VAL P-SAC VAC 0.5 ML IM ONE (21:00)
[2022-04-30] VITALS: BP 187/70
[2022-04-30] MEDS ORDERED: LORAZEPAM 0.5MG TABLET PO PRN (01:45)
[2022-04-30 06:00] VITALS: BP 138/51
[2022-04-30] MEDS: BLOOD SUGAR DIAGNOSTIC STRIP TEST SCH (06:13)
[2022-04-30] MEDS: INSULIN LISPRO 100 UNITS/ML SUBCUT SCH (06:17)
[2022-04-30] MEDS: GUAIFENESIN-DM 200MG-20MG/10ML UDC PO PRN (06:17)
[2022-04-30 06:30] VITALS: BP 138/51
== END 2022-04-30 07:10 | disposition home health service (06) | DRG 177 ==
LOC: ER 16:23 → MICUSO 21:02 → EDBEDREQTM 21:05 → EDBEDREQ 21:05 → 7EST 04-28 22:49
PROVIDERS: ADMIT Internal Medicine; ATTEND Internal Medicine
PROC: 5A1D70Z Performance of Urinary Filtration, Intermittent, Less than 6 Hours Per Day (ICD-10-PCS; principal; 2022-04-28)
PROC: 5A1D70Z Performance of Urinary Filtration, Intermittent, Less than 6 Hours Per Day (ICD-10-PCS; 2022-04-29)
DX: U07.1 COVID-19 (principal); N18.6 End stage renal disease; I13.2 Hypertensive heart and chronic kidney disease with heart failure and with stage 5 chronic kidney disease, or end stage renal disease; E87.5 Hyperkalemia; I16.0 Hypertensive urgency; Z86.73 Personal history of transient ischemic attack (TIA), and cerebral infarction without residual deficits; Z99.2 Dependence on renal dialysis; Z83.3 Family history of diabetes mellitus; Z28.310 Unvaccinated for COVID-19; E11.22 Type 2 diabetes mellitus with diabetic chronic kidney disease; I25.10 Atherosclerotic heart disease of native coronary artery without angina pectoris; I50.9 Heart failure, unspecified; Z91.15 Patient's noncompliance with renal dialysis; Z88.1 Allergy status to other antibiotic agents; D63.1 Anemia in chronic kidney disease
CPT/HCPCS: 36415; 71045; 80048; 80053; 82962; 83880; 84132; 85025; 86705; 86709; 86803; 87340; 87426; 87804; 90686; 90732; 90935; 93005; 99285; C9803; J0610; J1815; J1940; J2765; J3490

== ENCOUNTER 2022-07-22 19:55 | Emergency (ER) | payer MEDICARE, MEDICAID ==
[~2022-07-22] VITALS: Ht 170.2 cm; Wt 90.0 kg
[2022-07-22 21:56] LABS: BASOPHILS % 1.4 % (0.0-2.0); EOSINOPHILS % 5.4 % (0.0-5.0); HEMOGLOBIN. 12.6 g/dL (12.0-16.0); LYMPHOCYTES % 21.7 % (20.0-50.0); MEAN CORPUSCULAR HEMOGLOBIN 30.8 pg (28.0-32.0); MEAN CORPUSCULAR VOLUME 94.9 fL (81.0-99.0); MEAN PLATELET VOLUME 6.9 fl (7.4-10.4); MONOCYTES % 6.7 % (2.0-8.0); NEUTROPHILS % 64.8 % (40.0-76.0); PLATELET 373 x1000/uL (130-400); RED CELL DISTRIBUTION WIDTH 17.2 % (11.6-14.6)
[2022-07-22 22:05] LABS: CHLORIDE 99 mEq/L (98-107)
[2022-07-22 22:08] LABS: PROTHROMBIN TIME 10.5 sec (9.6-11.0)
[2022-07-22 23:10] VITALS: BP 161/62
== END 2022-07-22 23:14 | disposition home or self-care (01) ==
LOC: ER 20:44
DX: I10 Essential (primary) hypertension (principal); I13.2 Hypertensive heart and chronic kidney disease with heart failure and with stage 5 chronic kidney disease, or end stage renal disease; E11.22 Type 2 diabetes mellitus with diabetic chronic kidney disease; N18.6 End stage renal disease; I50.9 Heart failure, unspecified; I21.9 Acute myocardial infarction, unspecified; Z88.1 Allergy status to other antibiotic agents; Z99.2 Dependence on renal dialysis; Z79.82 Long term (current) use of aspirin; Z86.73 Personal history of transient ischemic attack (TIA), and cerebral infarction without residual deficits; Z98.62 Peripheral vascular angioplasty status
CPT/HCPCS: 36415; 71045; 80053; 84484; 85025; 99284

== ENCOUNTER 2023-08-05 01:51 | Emergency (ER) | payer MEDICARE, MEDICAID ==
[~2023-08-05] VITALS: Ht 167.6 cm; Wt 137.0 kg
[~2023-08-05 01:51] MED LIST changes: -HYDR-4134 MT; +HYDR25TA78 MT
[2023-08-05 01:52] VITALS: O2SAT 96
[2023-08-05] MEDS ORDERED: ACETAMINOPHEN 325MG TABLET PO ONE (02:15)
[2023-08-05] MEDS ORDERED: MORPHINE SULFATE 4 MG/ML INJ (FOR IV/IM USE) IM ONE (02:15)
[2023-08-05] MEDS ORDERED: ONDANSETRON 4MG ODT PO ONE (02:15)
[2023-08-05] MEDS: ONDANSETRON 4MG ODT PO NR (05:42)
[2023-08-05] MEDS: ACETAMINOPHEN 325MG TABLET PO NR (05:42)
[2023-08-05] MEDS: MORPHINE SULFATE 4 MG/ML INJ (FOR IV/IM USE) IM NR (05:43)
[2023-08-05] MEDS: LIDOCAINE 5% PATCH TOP SCH (05:48)
[2023-08-05 06:14] VITALS: BP 136/50; PULSE 62; RESP 16; TEMP 98.2
[2023-08-05] MEDS ORDERED: ACET-2708 MT (06:26)
[2023-08-05] MEDS ORDERED: LIDO700A15 TP (06:26)
== END 2023-08-05 06:45 | disposition home or self-care (01) ==
LOC: ER 02:00
DX: M54.50 Low back pain, unspecified (principal); I12.0 Hypertensive chronic kidney disease with stage 5 chronic kidney disease or end stage renal disease; E11.22 Type 2 diabetes mellitus with diabetic chronic kidney disease; N18.6 End stage renal disease; Z00.00 Encounter for general adult medical examination without abnormal findings; Z88.1 Allergy status to other antibiotic agents; Z79.899 Other long term (current) drug therapy; Z79.82 Long term (current) use of aspirin
CPT/HCPCS: 99283; 73502; 96372; Q0162; J2270

== ENCOUNTER 2024-07-08 19:42 | Emergency (ER) | payer MEDICARE, MEDICAID ==
[~2024-07-08] VITALS: Ht 170.2 cm; Wt 127.0 kg
[~2024-07-08 19:42] MED LIST changes: +ACET-2708 MT; +LIDO700A15 TP; +ONDA4TAB50 MT
[2024-07-08 19:48] VITALS: PULSE 76; TEMP 36.8; O2SAT 98
[2024-07-08 23:36] LABS: BASOPHILS % 2.1 % (0.0-2.0); EOSINOPHILS % 3.8 % (0.0-5.0); LYMPHOCYTES % 13.6 % (20.0-50.0); MEAN CORPUSCULAR HGB CONC 31.5 g/dL (31.0-37.0); MEAN CORPUSCULAR VOLUME 92.1 fL (81.0-99.0); MONOCYTES % 7.7 % (2.0-8.0); NEUTROPHILS % 72.8 % (40.0-76.0); PLATELET 254 x1000/uL (130-400); RED BLOOD CELL COUNT 4.12 mill/uL (4.2-5.4); RED CELL DISTRIBUTION WIDTH 18.6 % (11.6-14.6); WHITE BLOOD COUNT 6.8 x1000/uL (4.5-11.0)
[2024-07-08 23:42] LABS: CHLORIDE 97 mEq/L (98-107); POTASSIUM 4.8 mEq/L (3.5-5.1); SODIUM 138 mEq/L (136-145)
[2024-07-08 23:43] LABS: CALCIUM 9.8 mg/dL (8.7-10.4); CARBON DIOXIDE 33 mEq/L (21-32)
[2024-07-08 23:48] LABS: GLUCOSE 115 mg/dL (70-105); UREA NITROGEN BLOOD 37 mg/dL (9-23)
[2024-07-09 00:01] LABS: TROPONIN I HIGH SENSITIVITY 42 ng/L (3.0-34)
[2024-07-09 00:02] LABS: CREATININE 5.1 mg/dL (0.6-1.0)
[2024-07-09 01:28] VITALS: BP 195/91; RESP 16; O2SAT 98
[2024-07-09] MEDS: HYDRALAZINE HCL 25MG TABLET PO NR (01:31)
[2024-07-09] MEDS: ACETAMINOPHEN 325MG TABLET PO NR (01:31)
[2024-07-09] MEDS: AMLODIPINE 5MG TABLET PO NR (01:32)
[2024-07-09] MEDS: MORPHINE SULFATE 4 MG/ML INJ (FOR IV/IM USE) IV NR (01:42)
[2024-07-09] MEDS: HYDROCODONE/ACETAMINOPHEN 5/325MG TABLET PO NR (01:43)
[2024-07-09 03:55] LABS: TROPONIN I HIGH SENSITIVITY 37 ng/L (3.0-34)
[2024-07-09] MEDS ORDERED: ACET-2708 MT (03:59)
== END 2024-07-09 04:46 | disposition home or self-care (01) ==
LOC: ER 19:42
DX: G44.209 Tension-type headache, unspecified, not intractable (principal); I13.2 Hypertensive heart and chronic kidney disease with heart failure and with stage 5 chronic kidney disease, or end stage renal disease; I50.9 Heart failure, unspecified; N18.6 End stage renal disease; E11.22 Type 2 diabetes mellitus with diabetic chronic kidney disease; M79.602 Pain in left arm; Z99.2 Dependence on renal dialysis; Z88.1 Allergy status to other antibiotic agents; Z86.73 Personal history of transient ischemic attack (TIA), and cerebral infarction without residual deficits; Z79.82 Long term (current) use of aspirin; Z79.899 Other long term (current) drug therapy
CPT/HCPCS: 36415; 73070; 80048; 84484; 85025; 93005; 99285